=== PATIENT | female | born 1995 | race Caucasian/White ===

== ENCOUNTER 2017-08-31 13:27 | Inpatient (IN) | payer MEDICAID ==
[2017-08-31] MEDS ORDERED: NS 1,000 ML IV ONE ×2 (14:12→15:28)
[2017-08-31] MEDS ORDERED: IBUPROFEN 600 MG TAB PO ONE (15:09)
[2017-08-31] MEDS ORDERED: ACETAMINOPHEN 500 MG TAB PO ONE (15:09)
--- NOTE | 2017-08-31 15:20 | EDPHY ---
HPI/HX/ROS/PE/MDM Narrative: CHIEF COMPLAINT: Fever, facial swelling. HISTORY OF PRESENT ILLNESS: This patient is a 21 year old female complaining of fever and dizziness worsening since Monday and right-sided facial swelling onset this morning. Nine days ago, she had all four wisdom teeth remove. She took pain medication following, and felt well. Monday and Monday, she felt lightheaded and nauseous. Yesterday at work she did not feel well, and took Theraflu in the evening. She woke in the middle of the night talking to herself and having cold sweats and nausea. She took Theraflu again this morning, but developed worsening body aches, headache, and nausea. She noted the facial swelling at this time. She denies any throat pain or swelling or difficulty breathing. She has not vomited or fainted. No chest pain, shortness of breath, palpitations, vomiting, diarrhea, urinary complaints. REVIEW OF SYSTEMS: Aside from elements discussed in the HPI, a comprehensive 10-point review of systems was reviewed and is negative. PAST MEDICAL HISTORY: [place] tooth removal. 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 Lives in [place]. Single. VITAL SIGNS: Reviewed by me GENERAL: Well-developed, well-nourished, resting comfortably in no respiratory distress. HEENT: Significant swelling to right side of face across angle of the jaw, extends submandibularly. Mildly erythematous. Soft, nontender. Eyes: No icterus , no injection. Mouth: moist mucous membranes. Erythematous posterior pharynx and uvula. Erythema around right upper wisdom tooth extraction site. Neck: supple with no adenopathy. LUNGS: Clear to auscultation bilaterally, no wheezes, rhonchi or rales. CARDIAC: Regular tachycardia, no rubs, murmurs or gallops. ABDOMEN: Soft, nontender, nondistended, bowel sounds normal. BACK: No CVA tenderness. EXTREMITIES: No trauma. No edema. Range of motion is normal throughout. NEURO: Alert and oriented, grossly nonfocal. SKIN: Warm and dry, no rash. PSYCHIATRIC: Normal mentation, no agitation. Portions of this note were transcribed by a medical laboratory assistant. I personally performed a history, physical exam, medical decision making, and confirmed accuracy of information the transcribed note. ED Course: 21 year old female presents with fever and right-sided facial swelling. At triage, she is febrile at 39.3 degrees. Exam reveals significant mildly erythematous swelling to the right side of her face across mandibular area extending submandibularly which is soft and nontender. Erythema to posterior pharynx, uvula, and around right upper wisdom tooth extraction site. Plan to administer 600mg PO Ibuprofen and 1000mg PO acetaminophen for fever reduction. IV established. Administered 1L IV NS for symptom relief. Plan for labs including CBC, BMP, sepsis protocol, flu, mono, and strep screening. Plan for CT neck. White count 18,000. Does not meet severe sepsis criteria. [place] negative, strep negative. 17:[address] Dykes, radiologist. CT shows 1cm abscess lateral to lower right tooth, inflammatory changes down to hyoid. Plan to admit. Plan for ENT and medicine consult. 17:33 Spoke with hospitalist service. Dr. Jackson accepts admission. 17:43 ANGELICA Gunn for otolaryngology, at bedside. Consulted. ENT will follow in hospital. Sepsis Evaluation Note: The patient presents to the ED with potential infection identified as facial cellulitis and dental abscess. The patient did have evidence of sepsis with temperature greater than 38 degree Celsius, heart rate greater than 90, and WBC greater than 12,000. No evidence severe sepsis. Normal lactic acid. Patient did not have evidence of end-organ dysfunction. MDM: Differential diagnoses for the patient's symptom complex was considered including but not limited to dental abscess, facial cellulitis, deep space infection, soft tissue abscess, airway compromise, bacteremia, sepsis. - Data Points Imaging Results: Imaging Impressions Neck CT 08/31/17 15:28 Impression: 1. 1.3 x 1.1 x 1.5 cm periodontal abscess lateral to the right molar tooth, which recently has been removed. 2. Subcutaneous cellulitis and soft tissue inflammatory reaction extending down to the level of C4 along the lateral neck. The swelling goes to the submandibular glands, but does not extend medial to the submandibular glands. 3. No other abscesses. 4. Reactive lymphadenopathy. Findings discussed with Radha Santiago MD, at 1730 hours, 08/31/2017. Final report concurs with initial preliminary interpretation. Imaging: Discussed imaging studies w/ call center agent Radiologist Laboratory Results: Laboratory Results 08/31/17 14:00 08/31/17 14:00 08/31/17 08/31/17 08/31/17 16:20 16:00 15:28 WBC RBC Hgb Hct MCV MCH MCHC RDW Plt Count MPV Neut % (Auto) Lymph % (Auto) [place] % (Auto) Eos % (Auto) Baso % (Auto) Nucleat RBC Rel Count Absolute Neuts (auto) Absolute Lymphs (auto) Absolute Monos (auto) Absolute Eos (auto) Absolute Basos (auto) Absolute Nucleated RBC Immature Gran % Immature Gran # PT INR APTT VBG Lactic Acid 0.6 mmol/L L mmol/L (0.7-2.1) Sodium Potassium Chloride Carbon Dioxide Anion Gap BUN Creatinine Estimated GFR Glucose Calcium Total Bilirubin Nasal Influenza A PCR NEGATIVE FOR FLU A (NEGATIVE) Nasal Influenza B PCR NEGATIVE FOR FLU B (NEGATIVE) Monoscreen Group A Strep Screen NEGATIVE (NEGATIVE) 08/31/17 08/31/17 08/31/17 14:00 14:00 14:00 WBC RBC Hgb Hct MCV MCH MCHC RDW Plt Count MPV Neut % (Auto) Lymph % (Auto) [place] % (Auto) Eos % (Auto) Baso % (Auto) Nucleat RBC Rel Count Absolute Neuts (auto) Absolute Lymphs (auto) Absolute Monos (auto) Absolute Eos (auto) Absolute Basos (auto) Absolute Nucleated RBC Immature Gran % Immature Gran # PT 14.0 SEC SEC (12.0-15.0) INR 1.09 (0.83-1.16) APTT 28.3 SEC SEC (23.0-38.0) VBG Lactic Acid Sodium 139 mEq/L mEq/L (134-144) Potassium 3.5 mEq/L mEq/L (3.5-5.2) Chloride 101 mEq/L mEq/L (97-110) Carbon Dioxide 22 mEq/l mEq/l (22-31) Anion Gap 16 mEq/L mEq/L (8-16) BUN 9 mg/dL mg/dL (7-23) Creatinine 0.8 mg/dL mg/dL (0.6-1.0) Estimated GFR > 60 Glucose 102 mg/dL H mg/dL (70-100) Calcium 9.3 mg/dL mg/dL (8.5-10.4) Total Bilirubin 1.3 mg/dL mg/dL (0.1-1.4) Nasal Influenza A PCR Nasal Influenza B PCR Monoscreen NEGATIVE (NEGATIVE) Group A Strep Screen 08/31/17 14:00 WBC 18.70 10^3/uL H 10^3/uL (3.80-9.50) RBC 4.74 10^6/uL 10^6/uL (4.18-5.33) Hgb 14.8 g/dL g/dL (12.6-16.3) Hct 42.9 % % (38.0-47.0) MCV 90.5 fL fL (81.5-99.8) MCH 31.2 pg pg (27.9-34.1) MCHC 34.5 g/dL g/dL (32.4-36.7) RDW 11.9 % % (11.5-15.2) Plt Count 295 10^3/uL 10^3/uL (150-400) MPV 9.7 fL fL (8.7-11.7) Neut % (Auto) 85.6 % H % (39.3-74.2) Lymph % (Auto) 9.0 % L % (15.0-45.0) [place] % (Auto) 4.5 % % (4.5-13.0) Eos % (Auto) 0.2 % L % (0.6-7.6) Baso % (Auto) 0.3 % % (0.3-1.7) Nucleat RBC Rel Count 0.0 % % (0.0-0.2) Absolute Neuts (auto) 16.02 10^3/uL H 10^3/uL (1.70-6.50) Absolute Lymphs (auto) 1.68 10^3/uL 10^3/uL (1.00-3.00) Absolute Monos (auto) 0.85 10^3/uL H 10^3/uL (0.30-0.80) Absolute Eos (auto) 0.03 10^3/uL 10^3/uL (0.03-0.40) Absolute Basos (auto) 0.05 10^3/uL 10^3/uL (0.02-0.10) Absolute Nucleated RBC 0.00 10^3/uL 10^3/uL (0-0.01) Immature Gran % 0.4 % % (0.0-1.1) Immature Gran # 0.07 10^3/uL 10^3/uL (0.00-0.10) PT INR APTT VBG Lactic Acid Sodium Potassium Chloride Carbon Dioxide Anion Gap BUN Creatinine Estimated GFR Glucose Calcium Total Bilirubin Nasal Influenza A PCR Nasal Influenza B PCR Monoscreen Group A Strep Screen Medications Given: Discontinued Medications Acetaminophen (Tylenol) 1,000 mg PO EDNOW ONE Stop: 08/31/17 15:10 Last Admin: 08/31/17 15:15 Dose: 1,000 mg Sodium Chloride (Ns) 1,000 mls @ 0 mls/hr IV ONCE ONE; Wide Open PRN Reason: Protocol Stop: 08/31/17 14:13 Last Admin: 08/31/17 14:23 Dose: 1,000 mls Sodium Chloride (Ns) 1,000 mls @ 0 mls/hr IV ONCE ONE; Wide Open PRN Reason: Protocol Stop: 08/31/17 15:29 Last Admin: 08/31/17 15:48 Dose: 1,000 mls Ertapenem 1 gm/ Sodium (Chloride) 100 mls @ 200 mls/hr IV DAILY DELMI PRN Reason: Protocol Stop: 09/30/17 17:59 Last Admin: 08/31/17 18:20 Dose: 100 mls Clindamycin Phosphate/Dextrose (Cleocin 600 Mg (Premix)) 50 mls @ 100 mls/hr IV EDNOW ONE PRN Reason: Protocol Stop: 08/31/17 18:20 Last Admin: 08/31/17 18:37 Dose: Not Given Ibuprofen (Motrin) 600 mg PO EDNOW ONE Stop: 08/31/17 15:10 Last Admin: 08/31/17 15:14 Dose: 600 mg Ketorolac Tromethamine (Toradol) 15 mg IVP EDNOW ONE Stop: 08/31/17 17:48 Last Admin: 08/31/17 18:05 Dose: Not Given General Time Seen by Provider: 08/31/17 14:45 Initial Vital Signs: Initial Vital Signs Temperature (C) 39.3 C H 08/31/17 13:46 Heart Rate 127 H 08/31/17 13:46 Respiratory Rate 18 08/31/17 13:46 Blood Pressure 124/74 H 08/31/17 13:46 O2 Sat (%) 98 08/31/17 13:46 O2 Delivery Mode Room Air Allergies/Adverse Reactions: No Known Allergies Allergy (Unverified 08/31/17 13:45) Home Medications: Medication Instructions Recorded Control 1 tab PO DAILY 08/31/17 Hydrocodone/Acetaminophen [[place] 1 each PO Q6 PRN 08/31/17 5/325 (*)] Departure - Departure Disposition: [facility] Inpatient Acute Clinical Impression: Dental abscess, Facial cellulitis Condition: Fair Report Scribed for: Radha Santiago Report Scribed by: Vikki Mejias Date of Report: 08/31/17 Time of Report: 16:46
[2017-08-31 16:18] LABS: PLATELET COUNT 295 10^3/uL (150-400)
[2017-08-31 16:23] LABS: INR 1.09 (0.83-1.16)
[2017-08-31] MEDS ORDERED: IOPAMIDOL (ISOVUE-300) 100 ML BTL ONE (16:38)
[2017-08-31] MEDS ORDERED: CLINDAMYCIN 600 MG/DEXTROSE 50 ML IV ONE ×2 (17:31→17:51)
[2017-08-31] MEDS ORDERED: AMPICILLIN/SULBACTAM 3 GM in NS 100 ML IV ONE (17:38)
[2017-08-31] MEDS ORDERED: ONDANSETRON 4 MG/2 ML VIAL IVP PRN (17:44)
[2017-08-31] MEDS ORDERED: ONDANSETRON DISINTEGRATING 4 MG TAB PO PRN (17:44)
[2017-08-31] MEDS ORDERED: KETOROLAC 30 MG/1 ML SDV IVP ONE (17:47)
[2017-08-31] MEDS: ERTAPENEM 1 GM in NS 100 ML IV SCH ×2 (18:05→18:20)
--- NOTE | 2017-08-31 18:20 | PDGENHP ---
History and Physical - Chief Complaint facial pain - History of Present Illness 21 yo female with no significant past medical history presents to ED with facial pain, fevers, chills, and sweats. She had all 4 of her wisdom teeth removed 9 days [employer] [place] in [employer] [place]. She did well until POD #4 when she developed a fever and malaise. She then felt better for a few days, but awoke early this am with cold sweats, fever, and increased pain and swelling of her left cheek. She endorses nausea, no vomiting. She has no mandibular pain. In the ED, a CT scan revealed a periodontal abscess. Blood cultures were drawn. She was given a dose of Ertapenem and is admitted to the hospital for further management. History Information - Allergies/Home Medication List Allergies/Adverse Reactions: No Known Allergies Allergy (Unverified 08/31/17 13:45) Home Medications: Control 1 tab PO DAILY 08/31/17 [Last Taken Unknown] Hydrocodone/Acetaminophen [[place] 5/325 (*)] 1 each PO Q6 PRN 08/31/17 [Last Taken Unknown] I have personally reviewed and updated: family history, social history, surgical history - Surgical History Additional surgical history: wisdom teeth extraction 08/22/2017 - Family History Positive for: non-pertinent - Social History Smoking Status: Never smoked Alcohol Use: None Drug Use: None Additional social history: Single. Lives in [place]. 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 Review of Systems Review of Systems: ROS: 10pt was reviewed & negative except for what was stated in HPI & below Physical Exam Physical Exam: Temp Pulse Resp BP Pulse Ox 37.2 C 96 16 114/71 96 08/31/17 17:55 08/31/17 17:55 08/31/17 17:55 08/31/17 17:55 08/31/17 17:55 Constitutional: no apparent distress Eyes: PERRL Ears, Nose, Mouth, Throat: other (right facial swelling without erythema, + anterior cervical LAD) Cardiovascular: regular rate and rhythym, no murmur, rub, or gallop Respiratory: no respiratory distress, clear to auscultation Gastrointestinal: normoactive bowel sounds, soft, non-tender abdomen Skin: warm, normal color Musculoskeletal: full muscle strength Neurologic: AAOx3 Psychiatric: interacting appropriately Lab Data & Imaging Review 08/31/17 14:00 08/31/17 14:00 WBC 18.70 10^3/uL (3.80-9.50) H 08/31/17 14:00 RBC 4.74 10^6/uL (4.18-5.33) 08/31/17 14:00 Hgb 14.8 g/dL (12.6-16.3) 08/31/17 14:00 Hct 42.9 % (38.0-47.0) 08/31/17 14:00 MCV 90.5 fL (81.5-99.8) 08/31/17 14:00 MCH 31.2 pg (27.9-34.1) 08/31/17 14:00 MCHC 34.5 g/dL (32.4-36.7) 08/31/17 14:00 RDW 11.9 % (11.5-15.2) 08/31/17 14:00 Plt Count 295 10^3/uL (150-400) 08/31/17 14:00 MPV 9.7 fL (8.7-11.7) 08/31/17 14:00 Neut % (Auto) 85.6 % (39.3-74.2) H 08/31/17 14:00 Lymph % (Auto) 9.0 % (15.0-45.0) L 08/31/17 14:00 [place] % (Auto) 4.5 % (4.5-13.0) 08/31/17 14:00 Eos % (Auto) 0.2 % (0.6-7.6) L 08/31/17 14:00 Baso % (Auto) 0.3 % (0.3-1.7) 08/31/17 14:00 Nucleat RBC Rel Count 0.0 % (0.0-0.2) 08/31/17 14:00 Absolute Neuts (auto) 16.02 10^3/uL (1.70-6.50) H 08/31/17 14:00 Absolute Lymphs (auto) 1.68 10^3/uL (1.00-3.00) 08/31/17 14:00 Absolute Monos (auto) 0.85 10^3/uL (0.30-0.80) H 08/31/17 14:00 Absolute Eos (auto) 0.03 10^3/uL (0.03-0.40) 08/31/17 14:00 Absolute Basos (auto) 0.05 10^3/uL (0.02-0.10) 08/31/17 14:00 Absolute Nucleated RBC 0.00 10^3/uL (0-0.01) 08/31/17 14:00 Immature Gran % 0.4 % (0.0-1.1) 08/31/17 14:00 Immature Gran # 0.07 10^3/uL (0.00-0.10) 08/31/17 14:00 PT 14.0 SEC (12.0-15.0) 08/31/17 14:00 INR 1.09 (0.83-1.16) 08/31/17 14:00 APTT 28.3 SEC (23.0-38.0) 08/31/17 14:00 VBG Lactic Acid 0.6 mmol/L (0.7-2.1) L 08/31/17 16:20 Sodium 139 mEq/L (134-144) 08/31/17 14:00 Potassium 3.5 mEq/L (3.5-5.2) 08/31/17 14:00 Chloride 101 mEq/L (97-110) 08/31/17 14:00 Carbon Dioxide 22 mEq/l (22-31) 08/31/17 14:00 Anion Gap 16 mEq/L (8-16) 08/31/17 14:00 BUN 9 mg/dL (7-23) 08/31/17 14:00 Creatinine 0.8 mg/dL (0.6-1.0) 08/31/17 14:00 Estimated GFR > 60 08/31/17 14:00 Glucose 102 mg/dL (70-100) H 08/31/17 14:00 Calcium 9.3 mg/dL (8.5-10.4) 08/31/17 14:00 Total Bilirubin 1.3 mg/dL (0.1-1.4) 08/31/17 14:00 Nasal Influenza A PCR NEGATIVE FOR FLU A (NEGATIVE) 08/31/17 16:00 Nasal Influenza B PCR NEGATIVE FOR FLU B (NEGATIVE) 08/31/17 16:00 Monoscreen NEGATIVE (NEGATIVE) 08/31/17 14:00 Group A Strep Screen NEGATIVE (NEGATIVE) 08/31/17 15:28 Assessment & Plan Assessment: Periodontal abscess s/p wisdom tooth extraction - +SIRS criteria: fever, tachycardia, leukocytosis. No e/o severe sepsis, lactate normal. Discussed case with ENT who recommends Clindamycin. Discussed case with ID, who recommends Unasyn. Pt given Ertapenem in ED. BCx's pending. -Cont atbx, change to Unasyn tomorrow -can dc on oral augmentin when ready -likely needs drainage, discussed with Dr. Shantanu Valdivia, oral surgeon, who prefers to do it in his office and recommends we call there in the am for him to arrange: [phone] -if pt still appears ill tomorrow, consider inpt oral surgery consult Full code Dispo - inpt, suspect will require >48 hrs hospitalization for ongoing management of periodontal abscess and associated sepsis
--- NOTE | 2017-08-31 18:20 | PDGENHP ---
History and Physical - Chief Complaint facial pain - History of Present Illness 21 yo female with no significant past medical history presents to ED with facial pain, fevers, chills, and sweats. 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 She did well until POD #4 when she developed a fever and malaise. She then felt better for a few days, but awoke early this am with cold sweats, fever, and increased pain and swelling of her left cheek. She endorses nausea, no vomiting. She has no mandibular pain. In the ED, a CT scan revealed a periodontal abscess. Blood cultures were drawn. She was given a dose of Ertapenem and is admitted to the hospital for further management. History Information - Allergies/Home Medication List Allergies/Adverse Reactions: No Known Allergies Allergy (Unverified 08/31/17 13:45) Home Medications: Control 1 tab PO DAILY 08/31/17 [Last Taken Unknown] Hydrocodone/Acetaminophen [[place] 5/325 (*)] 1 each PO Q6 PRN 08/31/17 [Last Taken Unknown] I have personally reviewed and updated: family history, social history, surgical history - Surgical History Additional surgical history: wisdom teeth extraction 08/22/2017 - Family History Positive for: non-pertinent - Social History Smoking Status: Never smoked Alcohol Use: None Drug Use: None Additional social history: Single. Lives in [place]. 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 Review of Systems Review of Systems: ROS: 10pt was reviewed & negative except for what was stated in HPI & below Physical Exam Physical Exam: Temp Pulse Resp BP Pulse Ox 37.2 C 96 16 114/71 96 08/31/17 17:55 08/31/17 17:55 08/31/17 17:55 08/31/17 17:55 08/31/17 17:55 Constitutional: no apparent distress Eyes: PERRL Ears, Nose, Mouth, Throat: other (right facial swelling without erythema, + anterior cervical LAD) Cardiovascular: regular rate and rhythym, no murmur, rub, or gallop Respiratory: no respiratory distress, clear to auscultation Gastrointestinal: normoactive bowel sounds, soft, non-tender abdomen Skin: warm, normal color Musculoskeletal: full muscle strength Neurologic: AAOx3 Psychiatric: interacting appropriately Lab Data & Imaging Review 08/31/17 14:00 08/31/17 14:00 WBC 18.70 10^3/uL (3.80-9.50) H 08/31/17 14:00 RBC 4.74 10^6/uL (4.18-5.33) 08/31/17 14:00 Hgb 14.8 g/dL (12.6-16.3) 08/31/17 14:00 Hct 42.9 % (38.0-47.0) 08/31/17 14:00 MCV 90.5 fL (81.5-99.8) 08/31/17 14:00 MCH 31.2 pg (27.9-34.1) 08/31/17 14:00 MCHC 34.5 g/dL (32.4-36.7) 08/31/17 14:00 RDW 11.9 % (11.5-15.2) 08/31/17 14:00 Plt Count 295 10^3/uL (150-400) 08/31/17 14:00 MPV 9.7 fL (8.7-11.7) 08/31/17 14:00 Neut % (Auto) 85.6 % (39.3-74.2) H 08/31/17 14:00 Lymph % (Auto) 9.0 % (15.0-45.0) L 08/31/17 14:00 [place] % (Auto) 4.5 % (4.5-13.0) 08/31/17 14:00 Eos % (Auto) 0.2 % (0.6-7.6) L 08/31/17 14:00 Baso % (Auto) 0.3 % (0.3-1.7) 08/31/17 14:00 Nucleat RBC Rel Count 0.0 % (0.0-0.2) 08/31/17 14:00 Absolute Neuts (auto) 16.02 10^3/uL (1.70-6.50) H 08/31/17 14:00 Absolute Lymphs (auto) 1.68 10^3/uL (1.00-3.00) 08/31/17 14:00 Absolute Monos (auto) 0.85 10^3/uL (0.30-0.80) H 08/31/17 14:00 Absolute Eos (auto) 0.03 10^3/uL (0.03-0.40) 08/31/17 14:00 Absolute Basos (auto) 0.05 10^3/uL (0.02-0.10) 08/31/17 14:00 Absolute Nucleated RBC 0.00 10^3/uL (0-0.01) 08/31/17 14:00 Immature Gran % 0.4 % (0.0-1.1) 08/31/17 14:00 Immature Gran # 0.07 10^3/uL (0.00-0.10) 08/31/17 14:00 PT 14.0 SEC (12.0-15.0) 08/31/17 14:00 INR 1.09 (0.83-1.16) 08/31/17 14:00 APTT 28.3 SEC (23.0-38.0) 08/31/17 14:00 VBG Lactic Acid 0.6 mmol/L (0.7-2.1) L 08/31/17 16:20 Sodium 139 mEq/L (134-144) 08/31/17 14:00 Potassium 3.5 mEq/L (3.5-5.2) 08/31/17 14:00 Chloride 101 mEq/L (97-110) 08/31/17 14:00 Carbon Dioxide 22 mEq/l (22-31) 08/31/17 14:00 Anion Gap 16 mEq/L (8-16) 08/31/17 14:00 BUN 9 mg/dL (7-23) 08/31/17 14:00 Creatinine 0.8 mg/dL (0.6-1.0) 08/31/17 14:00 Estimated GFR > 60 08/31/17 14:00 Glucose 102 mg/dL (70-100) H 08/31/17 14:00 Calcium 9.3 mg/dL (8.5-10.4) 08/31/17 14:00 Total Bilirubin 1.3 mg/dL (0.1-1.4) 08/31/17 14:00 Nasal Influenza A PCR NEGATIVE FOR FLU A (NEGATIVE) 08/31/17 16:00 Nasal Influenza B PCR NEGATIVE FOR FLU B (NEGATIVE) 08/31/17 16:00 Monoscreen NEGATIVE (NEGATIVE) 08/31/17 14:00 Group A Strep Screen NEGATIVE (NEGATIVE) 08/31/17 15:28 Assessment & Plan Assessment: Periodontal abscess s/p wisdom tooth extraction - +SIRS criteria: fever, tachycardia, leukocytosis. No e/o severe sepsis, lactate normal. Discussed case with ENT who recommends Clindamycin. Discussed case with ID, who recommends Unasyn. Pt given Ertapenem in ED. BCx's pending. -Cont atbx, change to Unasyn tomorrow -can dc on oral augmentin when ready -likely needs drainage, discussed with Dr. Shantanu Valdivia, oral surgeon, who prefers to do it in his office and recommends we call there in the am for him to arrange: [phone] -if pt still appears ill tomorrow, consider inpt oral surgery consult Full code Dispo - inpt, suspect will require >48 hrs hospitalization for ongoing management of periodontal abscess and associated sepsis
--- NOTE | 2017-08-31 18:20 | PDGENHP ---
History and Physical - Chief Complaint facial pain - History of Present Illness 21 yo female with no significant past medical history presents to ED with facial pain, fevers, chills, and sweats. 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 She did well until POD #4 when she developed a fever and malaise. She then felt better for a few days, but awoke early this am with cold sweats, fever, and increased pain and swelling of her left cheek. She endorses nausea, no vomiting. She has no mandibular pain. In the ED, a CT scan revealed a periodontal abscess. Blood cultures were drawn. She was given a dose of Ertapenem and is admitted to the hospital for further management. History Information - Allergies/Home Medication List Allergies/Adverse Reactions: No Known Allergies Allergy (Unverified 08/31/17 13:45) Home Medications: Control 1 tab PO DAILY 08/31/17 [Last Taken Unknown] Hydrocodone/Acetaminophen [[place] 5/325 (*)] 1 each PO Q6 PRN 08/31/17 [Last Taken Unknown] I have personally reviewed and updated: family history, social history, surgical history - Surgical History Additional surgical history: wisdom teeth extraction 08/22/2017 - Family History Positive for: non-pertinent - Social History Smoking Status: Never smoked Alcohol Use: None Drug Use: None Additional social history: Single. Lives in [place]. 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 Review of Systems Review of Systems: ROS: 10pt was reviewed & negative except for what was stated in HPI & below Physical Exam Physical Exam: Temp Pulse Resp BP Pulse Ox 37.2 C 96 16 114/71 96 08/31/17 17:55 08/31/17 17:55 08/31/17 17:55 08/31/17 17:55 08/31/17 17:55 Constitutional: no apparent distress Eyes: PERRL Ears, Nose, Mouth, Throat: other (right facial swelling without erythema, + anterior cervical LAD) Cardiovascular: regular rate and rhythym, no murmur, rub, or gallop Respiratory: no respiratory distress, clear to auscultation Gastrointestinal: normoactive bowel sounds, soft, non-tender abdomen Skin: warm, normal color Musculoskeletal: full muscle strength Neurologic: AAOx3 Psychiatric: interacting appropriately Lab Data & Imaging Review 08/31/17 14:00 08/31/17 14:00 WBC 18.70 10^3/uL (3.80-9.50) H 08/31/17 14:00 RBC 4.74 10^6/uL (4.18-5.33) 08/31/17 14:00 Hgb 14.8 g/dL (12.6-16.3) 08/31/17 14:00 Hct 42.9 % (38.0-47.0) 08/31/17 14:00 MCV 90.5 fL (81.5-99.8) 08/31/17 14:00 MCH 31.2 pg (27.9-34.1) 08/31/17 14:00 MCHC 34.5 g/dL (32.4-36.7) 08/31/17 14:00 RDW 11.9 % (11.5-15.2) 08/31/17 14:00 Plt Count 295 10^3/uL (150-400) 08/31/17 14:00 MPV 9.7 fL (8.7-11.7) 08/31/17 14:00 Neut % (Auto) 85.6 % (39.3-74.2) H 08/31/17 14:00 Lymph % (Auto) 9.0 % (15.0-45.0) L 08/31/17 14:00 Hamilton % (Auto) 4.5 % (4.5-13.0) 08/31/17 14:00 Eos % (Auto) 0.2 % (0.6-7.6) L 08/31/17 14:00 Baso % (Auto) 0.3 % (0.3-1.7) 08/31/17 14:00 Nucleat RBC Rel Count 0.0 % (0.0-0.2) 08/31/17 14:00 Absolute Neuts (auto) 16.02 10^3/uL (1.70-6.50) H 08/31/17 14:00 Absolute Lymphs (auto) 1.68 10^3/uL (1.00-3.00) 08/31/17 14:00 Absolute Monos (auto) 0.85 10^3/uL (0.30-0.80) H 08/31/17 14:00 Absolute Eos (auto) 0.03 10^3/uL (0.03-0.40) 08/31/17 14:00 Absolute Basos (auto) 0.05 10^3/uL (0.02-0.10) 08/31/17 14:00 Absolute Nucleated RBC 0.00 10^3/uL (0-0.01) 08/31/17 14:00 Immature Gran % 0.4 % (0.0-1.1) 08/31/17 14:00 Immature Gran # 0.07 10^3/uL (0.00-0.10) 08/31/17 14:00 PT 14.0 SEC (12.0-15.0) 08/31/17 14:00 INR 1.09 (0.83-1.16) 08/31/17 14:00 APTT 28.3 SEC (23.0-38.0) 08/31/17 14:00 VBG Lactic Acid 0.6 mmol/L (0.7-2.1) L 08/31/17 16:20 Sodium 139 mEq/L (134-144) 08/31/17 14:00 Potassium 3.5 mEq/L (3.5-5.2) 08/31/17 14:00 Chloride 101 mEq/L (97-110) 08/31/17 14:00 Carbon Dioxide 22 mEq/l (22-31) 08/31/17 14:00 Anion Gap 16 mEq/L (8-16) 08/31/17 14:00 BUN 9 mg/dL (7-23) 08/31/17 14:00 Creatinine 0.8 mg/dL (0.6-1.0) 08/31/17 14:00 Estimated GFR > 60 08/31/17 14:00 Glucose 102 mg/dL (70-100) H 08/31/17 14:00 Calcium 9.3 mg/dL (8.5-10.4) 08/31/17 14:00 Total Bilirubin 1.3 mg/dL (0.1-1.4) 08/31/17 14:00 Nasal Influenza A PCR NEGATIVE FOR FLU A (NEGATIVE) 08/31/17 16:00 Nasal Influenza B PCR NEGATIVE FOR FLU B (NEGATIVE) 08/31/17 16:00 Monoscreen NEGATIVE (NEGATIVE) 08/31/17 14:00 Group A Strep Screen NEGATIVE (NEGATIVE) 08/31/17 15:28 Assessment & Plan Assessment: Periodontal abscess s/p wisdom tooth extraction - +SIRS criteria: fever, tachycardia, leukocytosis. No e/o severe sepsis, lactate normal. Discussed case with ENT who recommends Clindamycin. Discussed case with ID, who recommends Unasyn. Pt given Ertapenem in ED. BCx's pending. -Cont atbx, change to Unasyn tomorrow -can dc on oral augmentin when ready -likely needs drainage, discussed with Dr. Shantanu Valdivia, oral surgeon, who prefers to do it in his office and recommends we call there in the am for him to arrange: [phone] -if pt still appears ill tomorrow, consider inpt oral surgery consult Full code Dispo - inpt, suspect will require >48 hrs hospitalization for ongoing management of periodontal abscess and associated sepsis
--- NOTE | 2017-08-31 20:56 | GCON ---
[f rep st] CONSULTATION HISTORY OF PRESENT ILLNESS: The patient is a 21-year-old female, who presents to the emergency room today for evaluation of right facial swelling. The patient states that she had her wisdom teeth juan nisa on August 22. She was recovering uneventfully until today when her right jaw became ve ry swollen, and she developed a fever. A CT scan was performed, and that revealed a 1 cm abscess. PAST MEDICAL HISTORY: Negative. ALLERGIES: Negative. SOCIAL HISTORY: Noncontributory. PHYSICAL EXAMINATION: GENERAL: The patient is alert and orientated x3. HEENT: Head atraumatic, no rmocephalic. Ears, ECs are clear. TMs are healthy and intact. Nose clear. Oral cavity and pharynx are clear. NECK: She has significant swelling over her right mandible. It is tender to palpation, semi soft. Review of the CT scan reveals a 1 cm abscess lateral to her tooth. ASSESSMENT: The patient with a right dental abscess after wisdom tooth extraction 1 week ago. PLAN: The patient will be admitted overnight on IV clindamycin 600 mg 4 times daily for good oral co verage. I will round on her in the morning to make sure she is improving. She may need to return to her surgeon for followup of the abscess. Thank you for allowing us to consult in her care. /[id number]/MODL
[2017-08-31] MEDS ORDERED: HYDROCODONE/APAP 5/325 TAB PO PRN (22:40)
[2017-09-01 05:27] LABS: PLATELET COUNT 237 10^3/uL (150-400)
[2017-09-01] MEDS: BIRTH CONTROL PO SCH (08:11)
[2017-09-01] MEDS: ACETAMINOPHEN 325 MG TAB PO PRN ×2 (08:15→14:00)
--- NOTE | 2017-09-01 08:24 | HOSPPROG ---
Hospitalist Progress Note Assessment/Plan: Patient is a 21-year-old female who presented the emergency room with facial pain, fever chills and sweats. Recently, she had all 4 wisdom teeth removed approximately 9 days ago. She did well until postop day number 4. When she developed a fever and malaise. In the emergency room a CT scan was performed which revealed a periodontal abscess. Today is my 1st encounter with the patient. Chart reviewed. * periodontal abscess status post wisdom tooth extraction On Unasyn Given a dose of ertapenem in the ER Continues to be tachycardic and afebrile this morning with increased facial pain Do not believe she is ready to go to an outpatient office and will discuss with ENT * sirs Has some ongoing tachycardia, the fever and leukocytosis Lactate is stable *Plan: spoke with Dr Valdivia who feels it'd be better to do drainage in his office / I am too concerned she is too sick to discharge and go there/Have asked Dr Kaur to get involved in her care. Subjective: Loreto is having increase pain to right side of her face. Objective: Vital Signs Temp Pulse Resp BP Pulse Ox 38.0 C 95 16 116/78 16 L 09/01/17 08:00 09/01/17 08:00 09/01/17 08:00 09/01/17 08:00 09/01/17 08:00 Laboratory Results 09/01/17 05:02 08/31/17 09/01/17 09/02/17 05:59 05:59 05:59 Intake Total 2500 Balance 2500 PT 14.0 SEC (12.0-15.0) 08/31/17 14:00 INR 1.09 (0.83-1.16) 08/31/17 14:00 - Physical Exam Constitutional: uncomfortable Eyes: PERRL Ears, Nose, Mouth, Throat: hearing normal Cardiovascular: regular rate and rhythym, tachycardia Respiratory: no respiratory distress Gastrointestinal: normoactive bowel sounds Skin: warm, other (swelling/redness/erythema on right side of face/jaw area/ no trismus) Musculoskeletal: full muscle strength Neurologic: AAOx3 Psychiatric: interacting appropriately ICD10 Worksheet Patient Problems: Problems Problem Status Onset Dental abscess Acute Facial cellulitis Acute
[2017-09-01] MEDS ORDERED: KETOROLAC 15 MG/1 ML SDV IVP ONE (09:16)
--- NOTE | 2017-09-01 09:40 | PDMN ---
Medical Necessity Medical necessity: est los>2mn for periodontal abscess with SIRS/ sepsis s/p wisdom teeth extractions; for IV abx, oral surgery consult with likely need for drainage; per order and H&P 08/31/17
--- NOTE | 2017-09-01 10:43 | GCON ---
[f rep st] CONSULTATION INFECTIOUS DISEASE CONSULT DATE OF CONSULTATION: 09/01/2017 REFERRING PHYSICIAN: Flora Anand NP REASON FOR CONSULT: To assist in the management of this 21-year-old female with an odontogenic infection. HISTORY OF PRESENT ILLNESS: The patient is a very pleasant 21-year-old female, whose previous medical history is unremarkable. The patient states that she underwent extraction of all 4 wisdom teeth, approximately 10 days ago at [facility]. She does not remember the name of her oral surgeon. She states that she did not receive any bhavya or postoperative antibiotics, and there were no complications. Approximately 4 days after the surgery, she began to feel unwell with a fever, and subjective chills. 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 She denies any significant pain in her mouth or swelling, until yesterday, when she states that her face "blew up" on the right side. The patient states that she developed significant swelling and erythema, and pain on her right side of her face, and inside her mouth, in the posterior lower socket, where one of her wisdom teeth was removed. She presented to [facility] yesterday afternoon, where she was febrile to 39.5. A CT scan of the neck revealed significant facial cellulitis on the right, with a 1.3 x 1.1 x 1.5 cm periodontal abscess noted lateral to the right molar tooth socket. She was also found to have subcutaneous cellulitis and soft tissue inflammatory reaction. I am now asked to assist in her management. Also of note, the patient was initially given ertapenem in the emergency department, she is now on Unasyn 1.5 g IV q.6 hours, that has not yet been started. Speaking with the patient today, she continues to have a significant amount of discomfort in the area by the abscess. She has had shaking chills. She denies headache per se. She did eat breakfast this morning. No nausea or vomiting. No significant neck discomfort. No dysphonia, diarrhea or other. Aside from what is listed above, 10 systems were reviewed and all are negative. PREVIOUS MEDICAL HISTORY: As outlined above. MEDICATIONS: Prior to admission included Theraflu and oral contraceptives. ALLERGIES: No known drug allergies. 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 No tobacco, alcohol, or any illicit substances. No recent travel within or outside the [place]. No history of MRSA. Family history: Unremarkable PHYSICAL EXAM: VITAL SIGNS: T-current is 38, T-max is 39.5, heart rate is 95, blood pressure 116/78, 95% on room air. GENERAL: Uncomfortable appearing, but not toxic, lying in bed. HEENT: Atraumatic, normocephalic. Pupils equal, round, reactive to light. Extraocular movements are intact. No conjunctival injection, icterus or petechiae. Her left nostril is pierced. The patient's oropharynx is notable for no obvious thrush. Her posterior oropharynx looks fine. The patient does have extensive facial swelling on the right side with pinkish erythema. There is tenderness around the socket on the right lower area where one of her wisdom teeth was removed. I cannot express any purulence per se, but the area is quite tender. She is able to open and close her mouth without problems. No trismus. NECK: Supple. No anterior cervical lymphadenopathy. CARDIOVASCULAR: Tachycardic, S1, S2. A very faint systolic ejection murmur heard at the right and left lower sternal border. LUNGS: Clear to auscultation bilaterally, with no rales, rhonchi, or wheeze. No increased respiratory effort. ABDOMEN: Soft. No organomegaly or tenderness to palpation. Her navel is pierced. EXTREMITIES: No clubbing, cyanosis, or edema. SKIN: Warm and dry. The patient has multiple tattoos. There are some well-healed scars on her left anterior forearm, consistent with prior cutting behavior. No other lesions noted. NEUROLOGIC: She is alert and oriented x3. Moving all 4 extremities. Cranial nerves 2-12 intact to exam. No sensory deficits or motor deficits. LABORATORY DATA: Microbiologic data: Blood cultures x2 are pending. White blood cell count of 13.9, down from 18, hematocrit 37, platelet count of 237. BUN and creatinine 9/0.8. Flu swab negative. [place] negative. Strep screen negative. Radiographic data as outlined above. IMPRESSION: 21-year-old female status post wisdom teeth extraction approximately 10 days ago , who now presents with a subperiosteal dental abscess with concomitant facial cellulitis. This infection is likely polymicrobial in nature secondary to oropharyngeal vincent. PLAN: 1. Continue Unasyn, but increase dose to 3 g IV q.6 hours. 2. I was able to discuss the case with of oral surgery, who graciously agreed to see the patient later this afternoon. She may go to the operating room tomorrow morning. 3. I did inform patient that her oral contraceptives will be compromised in the setting of antibiotics moving forward and that condom use is necessary in this setting and for at least a month afterward. Thank you very much for consulting infectious diseases. We will continue to follow this patient with you. /[id number]/MODL MTDD
--- NOTE | 2017-09-01 14:25 | SOAPPROG ---
SOASIF Progress Note Assessment/Plan: Assept with dental casa fte wisdom tooth extraction. She is on Unasyn but it was not started until now. Pt notes swelling is less, still alot of pain. Spiked a fever this afternoon. O:- Jaw- swelling si softer and decreased slightly from yesterday. 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 oral cavity is clear. Plan: Pt with infection after wisdom tooth extraction. oral surgery was consulted. They are coming tomorrow. I spoke with ID and we will be signing off. 09/01/17 14:21 Objective: Vital Signs Temp Pulse Resp BP Pulse Ox 38.8 C H 90 16 110/73 95 09/01/17 14:02 09/01/17 10:53 09/01/17 10:53 09/01/17 10:53 09/01/17 10:53 Laboratory Results 09/01/17 05:02 08/31/17 09/01/17 09/02/17 05:59 05:59 05:59 Intake Total 2500 Balance 2500 PT 14.0 SEC (12.0-15.0) 08/31/17 14:00 INR 1.09 (0.83-1.16) 08/31/17 14:00 - Pending Discharge Pending Discharge Within 48 Hours: Yes Pending Discharge Date: 09/03/17 Pending Discharge Time: 11:00 ICD10 Worksheet Patient Problems: Problems Problem Status Onset Dental abscess Acute Facial cellulitis Acute
--- NOTE | 2017-09-01 14:25 | SOAPPROG ---
SOASIF Progress Note Assessment/Plan: Assept with dental casa fte wisdom tooth extraction. She is on Unasyn but it was not started until now. Pt notes swelling is less, still alot of pain. Spiked a fever this afternoon. O:- Jaw- swelling si softer and decreased slightly from yesterday. bobbin winder tender. oral cavity is clear. Plan: Pt with infection after wisdom tooth extraction. oral surgery was consulted. They are coming tomorrow. I spoke with ID and we will be signing off. 09/01/17 14:21 Objective: Vital Signs Temp Pulse Resp BP Pulse Ox 38.8 C H 90 16 110/73 95 09/01/17 14:02 09/01/17 10:53 09/01/17 10:53 09/01/17 10:53 09/01/17 10:53 Laboratory Results 09/01/17 05:02 08/31/17 09/01/17 09/02/17 05:59 05:59 05:59 Intake Total 2500 Balance 2500 PT 14.0 SEC (12.0-15.0) 08/31/17 14:00 INR 1.09 (0.83-1.16) 08/31/17 14:00 - Pending Discharge Pending Discharge Within 48 Hours: Yes Pending Discharge Date: 09/03/17 Pending Discharge Time: 11:00 ICD10 Worksheet Patient Problems: Problems Problem Status Onset Dental abscess Acute Facial cellulitis Acute
--- NOTE | 2017-09-01 14:25 | SOAPPROG ---
SOASIF Progress Note Assessment/Plan: Assept with dental casa fte wisdom tooth extraction. She is on Unasyn but it was not started until now. Pt notes swelling is less, still alot of pain. Spiked a fever this afternoon. O:- Jaw- swelling si softer and decreased slightly from yesterday. flotation tender helper. oral cavity is clear. Plan: Pt with infection after wisdom tooth extraction. oral surgery was consulted. They are coming tomorrow. I spoke with ID and we will be signing off. 09/01/17 14:21 Objective: Vital Signs Temp Pulse Resp BP Pulse Ox 38.8 C H 90 16 110/73 95 09/01/17 14:02 09/01/17 10:53 09/01/17 10:53 09/01/17 10:53 09/01/17 10:53 Laboratory Results 09/01/17 05:02 08/31/17 09/01/17 09/02/17 05:59 05:59 05:59 Intake Total 2500 Balance 2500 PT 14.0 SEC (12.0-15.0) 08/31/17 14:00 INR 1.09 (0.83-1.16) 08/31/17 14:00 - Pending Discharge Pending Discharge Within 48 Hours: Yes Pending Discharge Date: 09/03/17 Pending Discharge Time: 11:00 ICD10 Worksheet Patient Problems: Problems Problem Status Onset Dental abscess Acute Facial cellulitis Acute
--- NOTE | 2017-09-01 14:26 | ASMTCMCOM ---
CM Note CM Note Notes: Pt. is a 21-year-old woman admitted with a periodontal abscess. Hx. recent wisdom teeth extraction. Pt. 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 Pt. currently on IV antibiotics. CM to follow in case Pt needs outpatient IVs. Current plan: Likely independent, however monitor for any outpatient IV antibiotic needs. Date Signed: 09/01/2017 02:26 PM Electronically Signed By:Rosa Guerra LCSW
--- NOTE | 2017-09-01 14:26 | ASMTCMCOM ---
CM Note CM Note Notes: Pt. is a 21-year-old woman admitted with a periodontal abscess. Hx. recent wisdom teeth extraction. Pt. 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 Pt. currently on IV antibiotics. CM to follow in case Pt needs outpatient IVs. Current plan: Likely independent, however monitor for any outpatient IV antibiotic needs. Date Signed: 09/01/2017 02:26 PM Electronically Signed By:Rosa Guerra LCSW
--- NOTE | 2017-09-01 14:26 | ASMTCMCOM ---
CM Note CM Note Notes: Pt. is a 21-year-old woman admitted with a periodontal abscess. Hx. recent wisdom teeth extraction. Pt. 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 Pt. currently on IV antibiotics. CM to follow in case Pt needs outpatient IVs. Current plan: Likely independent, however monitor for any outpatient IV antibiotic needs. Date Signed: 09/01/2017 02:26 PM Electronically Signed By:Rosa Guerra LCSW
[2017-09-01] MEDS: AMPICILLIN/SULBACTAM 3 GM in NS 100 ML IV SCH ×2 (14:36→21:33)
[2017-09-01] MEDS ORDERED: AMPICILLIN/SULBACTAM 1.5 GM in NS 50 ML IV SCH (15:00)
--- NOTE | 2017-09-01 16:46 | ASMTCMCOM ---
CM Note CM Note Notes: Later today bedside RN came to [place] concerned that apparently oral surgeon who plans to do procedure tomorrow does not take Medicaid and will bill Pt. for her services. Pt. is a young woman just starting out in life and receiving a substantial medical bill should be the last resort. Pt. is OK with transferring hospitals if needed. Pinor called hospitalist who plans to contact ID MD to discuss alternative plans for Pt. Updated Pt. in room. Pt. very grateful for advocacy and experiencing a lot of distress regarding potential medical bill. SWer also notified Pt. that while her current hospital stay (minus oral surgeon at this time) will be covered by Medicaid, she should change her Medicaid to a front range plan through [facility]. Pt. still has a [place]-based Medicaid that needs to be changed. Pt. understood and will work on changing her Medicaid. Current plan: CM to follow in case Pt. will need IV antibiotics at d/c. Date Signed: 09/01/2017 04:45 PM Electronically Signed By:Rosa Guerra LCSW
--- NOTE | 2017-09-01 18:55 | GCON ---
[f rep st] ORAL & MAXILLOFACIAL SURGERY CONSULTATION CHIEF COMPLAINT: Facial pain and swelling. HISTORY OF PRESENT ILLNESS: 21-year-old female, who presented to the ED with facial pain, fevers, chills and progressive swelling. She had wisdom teeth removed by an oral surgery practice in [place] 9 days prior to admission and did fine postoperatively until day 4, where she developed fever and swelling. It has been progressive over the last few days. She has attempted to contact the oral surgeon in [place] without definitive success. In the ED a CT scan revealed a subperiosteal abscess associated on the right mandibular side. ID was consulted, patient is currently on Unasyn. OMFS for surgical intervention. PAST MEDICAL HISTORY: Denies. MEDICATIONS: control. ALLERGIES: No known drug allergies. SURGICAL HISTORY: Dental extractions. 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 REVIEW OF SYSTEMS: 10-point review of systems significant for the above mentioned findings. EXAMINATION: VITAL SIGNS: Blood pressure 113/66, heart rate 89, respiratory rate 16, O2 sat 95, temperature 37.7. No acute distress. Resting comfortably in bed. Right mid and lower facial edema, induration and erythema, soft and fluctuant to palpation, no neck limitation on mobility, CN II-XII grossly intact , KALE is greater than 30 mm, dentition grossly intact, right mandibular vestibular edema and gingival bogginess, no purulence obtained on palpation, uvula midline, no floor of mouth edema, full protrusion and mobility of tongue. IMAGING: CT scan reviewed. ASSESSMENT/PLAN: Right mandibular subperiosteal infection s/p extraction of # 32 by outside OMFS. Recommend I&D under [facility] tomorrow, scheduled for 8 am. NPO after MN MIVF abx per ID will add periogard bid /[id number]/MODL MTDD
--- NOTE | 2017-09-01 18:55 | GCON ---
[f rep st] ORAL & MAXILLOFACIAL SURGERY CONSULTATION CHIEF COMPLAINT: Facial pain and swelling. HISTORY OF PRESENT ILLNESS: 21-year-old female, who presented to the ED with facial pain, fevers, chills and progressive swelling. She had wisdom teeth removed by an oral surgery practice in [place] 9 days prior to admission and did fine postoperatively until day 4, where she developed fever and swelling. It has been progressive over the last few days. She has attempted to contact the oral surgeon in [place] without definitive success. In the ED a CT scan revealed a subperiosteal abscess associated on the right mandibular side. ID was consulted, patient is currently on Unasyn. OMFS for surgical intervention. PAST MEDICAL HISTORY: Denies. MEDICATIONS: control. ALLERGIES: No known drug allergies. SURGICAL HISTORY: Dental extractions. 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 REVIEW OF SYSTEMS: 10-point review of systems significant for the above mentioned findings. EXAMINATION: VITAL SIGNS: Blood pressure 113/66, heart rate 89, respiratory rate 16, O2 sat 95, temperature 37.7. No acute distress. Resting comfortably in bed. Right mid and lower facial edema, induration and erythema, soft and fluctuant to palpation, no neck limitation on mobility, CN II-XII grossly intact , KALE is greater than 30 mm, dentition grossly intact, right mandibular vestibular edema and gingival bogginess, no purulence obtained on palpation, uvula midline, no floor of mouth edema, full protrusion and mobility of tongue. IMAGING: CT scan reviewed. ASSESSMENT/PLAN: Right mandibular subperiosteal infection s/p extraction of # 32 by outside OMFS. Recommend I&D under [place] tomorrow, scheduled for 8 am. NPO after MN MIVF abx per ID will add periogard bid /[id number]/MODL MTDD
[2017-09-01] MEDS ORDERED: MELATONIN 3 MG TAB ONE (21:31)
[2017-09-01] MEDS: IBUPROFEN 200 MG TAB PO PRN (21:34)
[2017-09-01] MEDS: MELATONIN 3 MG TAB PO SCH (21:37)
[2017-09-02] MEDS: NS 1,000 ML IV SCH (03:36)
[2017-09-02] MEDS: AMPICILLIN/SULBACTAM 3 GM in NS 100 ML IV SCH ×4 (03:36→20:17)
[2017-09-02 04:47] LABS: PLATELET COUNT 231 10^3/uL (150-400)
[2017-09-02] MEDS ORDERED: BUPIVACAINE 0.5% 30 ML SDV ONE (07:19)
[2017-09-02] MEDS ORDERED: CHLORHEXIDINE GLUCONATE 15 ML UDL ONE (07:20)
--- NOTE | 2017-09-02 07:57 | PCMIDPN ---
Assessment/Plan: 1. Subperiosteal abscess after wisdom tooth removal: Patient to go to the operating room this morning. She is willing to proceed with surgery, as she understands that it is important for her overall health to have this drained. Dr. Lieberman's assistance is greatly appreciated. Patient is very concerned about finances. On Monday, will have social work/someone from the financial department speak to the patient. Continue Unasyn as is. Facial swelling much improved. Subjective: Patient very concerned about finances. Flora Anand and I went in to have a conversation with the patient, expressing the importance of having this drained expeditiously. Patient overall feels better. Did have some shaking chills associated with her fever last evening. Objective: Vital Signs Unasyn 3 g IV q.6 hours day 1 T-max 38.8degrees Temp Pulse Resp BP Pulse Ox 36.8 C 70 14 115/79 96 09/02/17 07:41 09/02/17 07:41 09/02/17 07:41 09/02/17 07:41 09/02/17 07:41 Laboratory Results 09/02/17 04:15 09/02/17 04:15 09/01/17 09/02/17 09/03/17 05:59 05:59 04:59 Intake Total 2500 Balance 2500 Blood cultures negative - Physical Exam General Appearance: other (Right-sided facial swelling much better. No overlying cellulitis, per se.) ICD10 Worksheet Patient Problems: Problems Problem Status Onset Dental abscess Acute Facial cellulitis Acute
[2017-09-02] MEDS ORDERED: MIDAZOLAM 2 MG/2 ML VIAL IVP ONE (08:09)
--- NOTE | 2017-09-02 08:09 | PDANEPAE ---
ANE History of Present Illness I and D tooth, extraoral drain placement ANE Past Medical History - Cardiovascular History Hx Hypertension: No - Pulmonary History Hx COPD: No Hx Oxygen in Use at Home: No Hx Sleep Apnea: No Sleep Apnea Screening Result - Last Documented: Negative - Endocrine History Hx Diabetes: No ANE Review of Systems Review of systems is: negative Review of Systems: - Exercise capacity Exercise capacity: >=4 METS ANE Patient History - Allergies Allergies/Adverse Reactions: No Known Allergies Allergy (Unverified 08/31/17 13:45) - Home Medications Home medications: home medication list seen and reviewed Home Medications: Control 1 tab PO DAILY 08/31/17 [Last Taken Unknown] Hydrocodone/Acetaminophen [[place] 5/325 (*)] 1 each PO Q6 PRN 08/31/17 [Last Taken Unknown] - NPO status NPO Status: no food or drink >8 hours NPO Since - Liquids (Date): 09/01/17 - Anes Hx Anes Hx: no prior problems - Smoking Hx Smoking Status: Never smoked - Alcohol Use Alcohol Use: None - Family Anes Hx Family Anes Hx: none ANE Labs/Vital Signs - Labs Result Diagrams: 09/02/17 04:15 09/02/17 04:15 - Vital Signs Blood Pressure: 115/79 Heart Rate: 70 Respiratory Rate: 14 O2 Sat (%): 96 Height: 149.86 cm Weight: 49.895 kg ANE Physical Exam - Airway Neck exam: FROM Mallampati Score: Class 1 Mouth exam: normal dental/mouth exam - Pulmonary Pulmonary: no respiratory distress - Cardiovascular Cardiovascular: regular rate and rhythym - ASA Status ASA Status: I ANE Anesthesia Plan Total IV Anesthesia: Yes
[2017-09-02] MEDS ORDERED: MIDAZOLAM 2 MG/2 ML VIAL ONE (08:18)
[2017-09-02] MEDS ORDERED: LIDOCAINE 2% 100 MG/5 ML SYR ONE (08:18)
[2017-09-02] MEDS ORDERED: PROPOFOL/EMULSION 500 MG/50 ML BOTTLE IV ONE (08:18)
[2017-09-02] MEDS ORDERED: LIDOCAINE 1% 300 MG/30 ML SDV ONE (08:21)
[2017-09-02] MEDS ORDERED: MEPERIDINE 25 MG/ML SYR IVP PRN (08:55)
[2017-09-02] MEDS ORDERED: HYDROmorphONE/DILAUDID 1 MG/ML INJ IVP PRN (08:55)
[2017-09-02] MEDS ORDERED: NALOXONE HCL 0.4 MG/ML INJ IVP PRN (08:55)
[2017-09-02] MEDS ORDERED: HYDROCODONE/APAP 5/325 TAB PO PRN (08:55)
[2017-09-02] MEDS ORDERED: PROMETHAZINE HCL 25 MG/ML INJ IVP PRN (08:55)
[2017-09-02] MEDS ORDERED: fentaNYL 100 MCG/2 ML INJ IVP PRN (08:55)
[2017-09-02] MEDS ORDERED: DEXAMETHASONE 4 MG/ML VIAL IVP PRN (08:55)
[2017-09-02] MEDS ORDERED: OXYCODONE/APAP 5/325 TAB PO PRN (08:55)
--- NOTE | 2017-09-02 08:55 | POSTANESTH ---
Post Anesthetic Evaluation Cardiovascular Status: Normal, Stable, Similar to Pre-Op Cond Respiratory Status: Normal, Stable, Similar to Pre-op Cond. Level of Consciousness/Mental Status: Can Participate in Eval, Moderately Sleepy Pain Control: Adequate, Prn Tx Ordered Nausea/Vomiting Control: Adequate, Prn Tx Ordered Complications Possibly Related to Anesthesia: None Noted
--- NOTE | 2017-09-02 09:33 | POSTOPPROG ---
Post Op Note Date of Operation: 09/02/17 Surgeon: Sari Lieberman Engineering Inspection Assistant: none Anesthesiologist: Jah Pereira Anesthesia: IV Sedation Pre-op Diagnosis: R mandibular subperiosteal abscess Post-op Diagnosis: same Indication: infection Procedure: I&D of R mandibular subperiosteal abscess, drain x 1 Findings: purulent drainage surrounding #32 site Inf/Abcess present in the surg proc area at time of surgery?: Yes Depth: Deep Incisional (Fascial) EBL: Minimal Total fluids administered: see anesthesia record Complications: none Drains: Ana María (ana maría x 1 intraoral right mandibular vestibule)
--- NOTE | 2017-09-02 09:46 | HOSPPROG ---
Hospitalist Progress Note Assessment/Plan: Patient is a 21-year-old female who presented the emergency room with facial pain, fever chills and sweats. Recently, she had all 4 wisdom teeth removed approximately 9 days ago. She did well until postop day number 4. When she developed a fever and malaise. In the emergency room a CT scan was performed which revealed a periodontal abscess. * right mandibular subperiosteal abscess status post wisdom tooth extraction appreciate Dr Lieberman On Unasyn * sirs much improved/ fever last night Lactate is stable *Plan: continue IV antibiotics/ evaluated the patient today prior to surgery with Dr Ellis. Subjective: Loreto is feeling much better today/ agreeable to go to OR. Objective: Vital Signs Temp Pulse Resp BP Pulse Ox 36.9 C 102 H 24 H 132/77 H 100 09/02/17 09:10 09/02/17 09:10 09/02/17 09:10 09/02/17 09:10 09/02/17 09:10 Laboratory Results 09/02/17 04:15 09/02/17 04:15 09/01/17 09/02/17 09/03/17 05:59 05:59 04:59 Intake Total 2500 Output Total 10 Balance 2500 -10 PT 14.0 SEC (12.0-15.0) 08/31/17 14:00 INR 1.09 (0.83-1.16) 08/31/17 14:00 - Physical Exam Constitutional: no apparent distress, appears nourished, not in pain Eyes: PERRL Ears, Nose, Mouth, Throat: hearing normal Respiratory: no respiratory distress Gastrointestinal: normoactive bowel sounds Skin: other (right jaw area with much less redness and swelling) Musculoskeletal: full muscle strength Neurologic: AAOx3 Psychiatric: interacting appropriately ICD10 Worksheet Patient Problems: Problems Problem Status Onset Dental abscess Acute Facial cellulitis Acute
--- NOTE | 2017-09-02 09:52 | GOP ---
[f rep st] ORAL & MAXILLOFACIAL SURGERY OPERATIVE REPORT DATE OF OPERATION: 09/02/17 SURGEON: Samina Lieberman DDS, MD PRIMARY QUARTZ MINER: none ANESTHESIA: IV GA. PREOPERATIVE DIAGNOSIS: Right mandibular subperiosteal abscess. POSTOPERATIVE DIAGNOSIS: Right mandibular subperiosteal abscess. PROCEDURE PERFORMED: Exploration, I&D of right mandibular subperiosteal abscess , placement of drain. ESTIMATED BLOOD LOSS: minimal FINDINGS: purulent drainage. DRAINS: [place] x 1 intraorally. CULTURES: 2 aerobic/anaerobic cultures. URINE OUTPUT: None recorded. DISPOSITION: Floor. INDICATIONS: The patient is a 21-year-old female who is approximately 10 days status post extraction of her wisdom teeth by an outside oral surgeon. She developed progressive pain and swelling of her right face 4 days postoperatively. She has been admitted for IV antibiotics. CT imaging demonstrates a fluid collection of the right mandibular subperiosteal region, and OMFS was consulted for surgical intervention. Risks, benefits, and complications of the procedure were explained to the patient, all questions were addressed, and the consent form was signed. DESCRIPTION OF PROCEDURE: The patient was correctly identified in the preoperative holding area and transported to [facility]. She was transferred to her bed in the supine position where all ASA monitors were attached. She was induced under anesthesia utilizing an intravenous route. She was prepped and draped in the usual sterile fashion. A time-out was performed where all members of the team were in agreement with the procedure. A bite block was placed, and 6 cc of 0.5% Marcaine with 1:200,000 epinephrine was given to the right inferior alveolar, lingual, and buccal nerves. A throat pack was placed. The oral cavity was brushed with Peridex. A crestal incision #29 - 31 with a posterior hockey-stick extension was developed and a full-thickness mucoperiosteal flap was created. ~ 3 cc's of purulent drainage was obtained associated with the #32 edentulous site. Two aerobic/anaerobic cultures were taken at this time. The extraction socket was curettaged of all debris, and the right mandible was explored for post-surgical debris. Thorough irrigation with normal saline was performed and a half-inch Pati was trimmed and secured into the right mandibular subperiosteal pocket. 3-0 chromic gut sutures in interrupted fashion were placed to secure the drain. The site was noted to be hemostatic at the end of the case. A 4 x 4 dressing tied with umbilical tape was utilized as a pressure dressing. The patient was then awakened, transferred to her usual bed, and transported to PACU in the care of her surgical team. /[id number]/MODL MTDD
--- NOTE | 2017-09-02 09:52 | GOP ---
[f rep st] ORAL & MAXILLOFACIAL SURGERY OPERATIVE REPORT DATE OF OPERATION: 09/02/17 SURGEON: Samina Lieberman DDS, MD PRIMARY EMR ANALYST: none ANESTHESIA: IV GA. PREOPERATIVE DIAGNOSIS: Right mandibular subperiosteal abscess. POSTOPERATIVE DIAGNOSIS: Right mandibular subperiosteal abscess. PROCEDURE PERFORMED: Exploration, I&D of right mandibular subperiosteal abscess , placement of drain. ESTIMATED BLOOD LOSS: minimal FINDINGS: purulent drainage. DRAINS: [place] x 1 intraorally. CULTURES: 2 aerobic/anaerobic cultures. URINE OUTPUT: None recorded. DISPOSITION: Floor. INDICATIONS: The patient is a 21-year-old female who is approximately 10 days status post extraction of her wisdom teeth by an outside oral surgeon. She developed progressive pain and swelling of her right face 4 days postoperatively. She has been admitted for IV antibiotics. CT imaging demonstrates a fluid collection of the right mandibular subperiosteal region, and OMFS was consulted for surgical intervention. Risks, benefits, and complications of the procedure were explained to the patient, all questions were addressed, and the consent form was signed. DESCRIPTION OF PROCEDURE: The patient was correctly identified in the preoperative holding area and transported to [facility]. She was transferred to her bed in the supine position where all ASA monitors were attached. She was induced under anesthesia utilizing an intravenous route. She was prepped and draped in the usual sterile fashion. A time-out was performed where all members of the team were in agreement with the procedure. A bite block was placed, and 6 cc of 0.5% Marcaine with 1:200,000 epinephrine was given to the right inferior alveolar, lingual, and buccal nerves. A throat pack was placed. The oral cavity was brushed with Peridex. A crestal incision #29 - 31 with a posterior hockey-stick extension was developed and a full-thickness mucoperiosteal flap was created. ~ 3 cc's of purulent drainage was obtained associated with the #32 edentulous site. Two aerobic/anaerobic cultures were taken at this time. The extraction socket was curettaged of all debris, and the right mandible was explored for post-surgical debris. Thorough irrigation with normal saline was performed and a half-inch Pati was trimmed and secured into the right mandibular subperiosteal pocket. 3-0 chromic gut sutures in interrupted fashion were placed to secure the drain. The site was noted to be hemostatic at the end of the case. A 4 x 4 dressing tied with umbilical tape was utilized as a pressure dressing. The patient was then awakened, transferred to her usual bed, and transported to PACU in the care of her surgical team. /[id number]/MODL MTDD
--- NOTE | 2017-09-02 09:52 | GOP ---
[f rep st] ORAL & MAXILLOFACIAL SURGERY OPERATIVE REPORT DATE OF OPERATION: 09/02/17 SURGEON: Samina Lieberman DDS, MD PRIMARY RUBBER COMPOUNDER: none ANESTHESIA: IV GA. PREOPERATIVE DIAGNOSIS: Right mandibular subperiosteal abscess. POSTOPERATIVE DIAGNOSIS: Right mandibular subperiosteal abscess. PROCEDURE PERFORMED: Exploration, I&D of right mandibular subperiosteal abscess , placement of drain. ESTIMATED BLOOD LOSS: minimal FINDINGS: purulent drainage. DRAINS: [place] x 1 intraorally. CULTURES: 2 aerobic/anaerobic cultures. URINE OUTPUT: None recorded. DISPOSITION: Floor. INDICATIONS: The patient is a 21-year-old female who is approximately 10 days status post extraction of her wisdom teeth by an outside oral surgeon. She developed progressive pain and swelling of her right face 4 days postoperatively. She has been admitted for IV antibiotics. CT imaging demonstrates a fluid collection of the right mandibular subperiosteal region, and OMFS was consulted for surgical intervention. Risks, benefits, and complications of the procedure were explained to the patient, all questions were addressed, and the consent form was signed. DESCRIPTION OF PROCEDURE: The patient was correctly identified in the preoperative holding area and transported to [facility]. She was transferred to her bed in the supine position where all ASA monitors were attached. She was induced under anesthesia utilizing an intravenous route. She was prepped and draped in the usual sterile fashion. A time-out was performed where all members of the team were in agreement with the procedure. A bite block was placed, and 6 cc of 0.5% Marcaine with 1:200,000 epinephrine was given to the right inferior alveolar, lingual, and buccal nerves. A throat pack was placed. The oral cavity was brushed with Peridex. A crestal incision #29 - 31 with a posterior hockey-stick extension was developed and a full-thickness mucoperiosteal flap was created. ~ 3 cc's of purulent drainage was obtained associated with the #32 edentulous site. Two aerobic/anaerobic cultures were taken at this time. The extraction socket was curettaged of all debris, and the right mandible was explored for post-surgical debris. Thorough irrigation with normal saline was performed and a half-inch Pati was trimmed and secured into the right mandibular subperiosteal pocket. 3-0 chromic gut sutures in interrupted fashion were placed to secure the drain. The site was noted to be hemostatic at the end of the case. A 4 x 4 dressing tied with umbilical tape was utilized as a pressure dressing. The patient was then awakened, transferred to her usual bed, and transported to PACU in the care of her surgical team. /[id number]/MODL MTDD
[2017-09-02] MEDS: BIRTH CONTROL PO SCH (10:15)
[2017-09-02] MEDS: IBUPROFEN 200 MG TAB PO PRN (10:29)
[2017-09-02] MEDS: CHLORHEXIDINE GLUCONATE 15 ML UDL PO SCH ×2 (11:07→20:16)
[2017-09-02] MEDS: oxyCODONE IR 5 MG TAB PO PRN ×2 (11:13→13:38)
[2017-09-02] MEDS ORDERED: KETOROLAC 30 MG/1 ML SDV IVP ONE (14:21)
--- NOTE | 2017-09-02 15:17 | ASMTCMCOM ---
CM Note CM Note Notes: Reviewed chart for discharge plan, pt's progress. Per MD notes, Hospitalist and ID met w/ pt to discuss importance of having dental procedure despite pt's financial concerns. Pt agreeable to proceed w/ surgery; s/p I&D of tooth w/ placement of a Pati drain. Pt's discharge needs remain TBD at this time (unclear if pt will require prolonged course of IV antibiotics). CM will cont to follow for assistance w/ financial concerns and any potential needs. Date Signed: 09/02/2017 03:17 PM Electronically Signed By:Surekha Elder RN
[2017-09-02] MEDS: ACETAMINOPHEN 325 MG TAB PO PRN ×2 (15:51→20:16)
[2017-09-02] MEDS: KETOROLAC 15 MG/1 ML SDV IVP SCH (18:08)
[2017-09-02] MEDS: MELATONIN 3 MG TAB PO SCH (20:16)
[2017-09-02] MEDS ORDERED: MELATONIN 3 MG TAB PO SCH (21:00)
[2017-09-03] MEDS: KETOROLAC 15 MG/1 ML SDV IVP SCH ×2 (00:48→05:18)
[2017-09-03] MEDS: AMPICILLIN/SULBACTAM 3 GM in NS 100 ML IV SCH ×4 (02:52→20:29)
[2017-09-03] MEDS: NS 1,000 ML IV SCH (08:27)
[2017-09-03] MEDS: CHLORHEXIDINE GLUCONATE 15 ML UDL PO SCH ×2 (08:28→20:29)
[2017-09-03] MEDS: BIRTH CONTROL PO SCH (08:46)
--- NOTE | 2017-09-03 09:01 | PCMIDPN ---
Assessment/Plan: 1. Subperiosteal abscess after wisdom tooth removal postop day 1. status post incision and drainage: Still having fevers, but overall looks better. Facial swelling also much improved. Continue Unasyn as is. Please see #2. Sincerely appreciate 's care. 2. Fevers: Send stool for C difficile toxin in the setting of new diarrhea. No evidence of drug eruption. Encouraged patient to get out of bed and walked the halls, and will bring her an incentive spirometer. Abscess cultures are pending, but would not add any additional antibiotics at this time (i.e., coverage for MRSA) and await culture results. Subjective: Status post incision and drainage of subperiosteal abscess yesterday. 3 cc of pus was drained, and a [place] was left in place. Spoke to microbiology lab. So far, only oral vincent is growing, but not a single pathogen, per se. Also of note, patient started having severe diarrhea last night. No associated abdominal pain. No blood. C difficile precautions instituted as a precautionary measure and stool will be sent. Objective: Unasyn 3 g IV q.6 hours day 2 T-max 38.7degrees Vital Signs Temp Pulse Resp BP Pulse Ox 37.8 C 75 14 108/63 94 09/03/17 07:24 09/03/17 07:24 09/03/17 07:24 09/03/17 07:24 09/03/17 07:24 Microbiology 09/02/17 08:50 Gram Stain - Final Other - Eswab 09/02/17 08:50 Gram Stain - Final Other - Eswab Laboratory Results 09/02/17 04:15 09/02/17 04:15 09/02/17 09/03/17 09/04/17 06:59 05:59 05:59 Intake Total Output Total Balance Mouth purulence with oral vincent only so far, no single pathogen identified. No Staph aureus Blood cultures negative - Physical Exam General Appearance: alert, no apparent distress EENT: other (Sided facial swelling better, but still evident. No overlying facial cellulitis. [place] in place in the right lower molar area. Some tenderness in this area.) Respiratory: lungs clear Cardiac/Chest: regular rate, rhythm, tachycardia Abdomen: non-tender, soft Skin: No rash ICD10 Worksheet Patient Problems: Problems Problem Status Onset Dental abscess Acute Facial cellulitis Acute
--- NOTE | 2017-09-03 09:14 | HOSPPROG ---
Hospitalist Progress Note Assessment/Plan: Patient is a 21-year-old female who presented the emergency room with facial pain, fever chills and sweats. Recently, she had all 4 wisdom teeth removed approximately 9 days ago. She did well until postop day number 4. When she developed a fever and malaise. In the emergency room a CT scan was performed which revealed a periodontal abscess. * right mandibular subperiosteal abscess status post wisdom tooth extraction appreciate Dr Lieberman On Unasyn Pain is improving * sirs much improved/ fever last night of 38.7 Lactate is stable * diarrhea Had more than 4 episodes this morning Checking for Clostridium difficile *Plan: continue IV antibiotics/ will resume IV fluids. Check labs. In addition will ask case management to help arrange for her to get outpatient care follow-up. She is new to the [facility] and has no primary care provider for follow-up. Her parents live in [place] Subjective: Loreto has less pain in the jaw area. Is feeling better overall. Objective: Vital Signs Temp Pulse Resp BP Pulse Ox 37.8 C 75 14 108/63 94 09/03/17 07:24 09/03/17 07:24 09/03/17 07:24 09/03/17 07:24 09/03/17 07:24 Microbiology 09/02/17 08:50 Gram Stain - Final Other - Eswab 09/02/17 08:50 Gram Stain - Final Other - Eswab Laboratory Results 09/02/17 04:15 09/02/17 04:15 09/02/17 09/03/17 09/04/17 06:59 05:59 05:59 Intake Total Output Total Balance PT 14.0 SEC (12.0-15.0) 08/31/17 14:00 INR 1.09 (0.83-1.16) 08/31/17 14:00 - Physical Exam Constitutional: appears nourished Eyes: PERRL Ears, Nose, Mouth, Throat: hearing normal Cardiovascular: regular rate and rhythym, tachycardia Respiratory: no respiratory distress Skin: other (right sided jaw swelling with enlarged lymph gland on right neck area) Neurologic: AAOx3 Psychiatric: interacting appropriately ICD10 Worksheet Patient Problems: Problems Problem Status Onset Dental abscess Acute Facial cellulitis Acute
[2017-09-03] MEDS ORDERED: IBUPROFEN 600 MG TAB PO PRN (09:15)
[2017-09-03 10:10] LABS: PLATELET COUNT 227 10^3/uL (150-400)
--- NOTE | 2017-09-03 10:17 | SOAPPROG ---
SOAP Progress Note Assessment/Plan: Assessment: 21 y F POD 1 of I&D of right mandibular subperiosteal abscess and drain placement, stable in regards to OMFS standpoint of post-surgical odontogenic abscess. Plan: discussed with pt and team, recommend outpatient visit with Dr. Lieberman for drain management abx per team d/c with periogard mouthrinse bid for one week pt has post-op instructions, all questions addressed appreciate consult 09/03/17 10:20 Subjective: pain has been manageable overnight, development of diarrhea Objective: Vital Signs Temp Pulse Resp BP Pulse Ox 37.8 C 75 14 108/63 94 09/03/17 07:24 09/03/17 07:24 09/03/17 07:24 09/03/17 07:24 09/03/17 07:24 Microbiology 09/02/17 08:50 Gram Stain - Final Other - Eswab 09/02/17 08:50 Gram Stain - Final Other - Eswab Laboratory Results 09/03/17 10:02 09/02/17 09/03/17 09/04/17 06:59 05:59 05:59 Intake Total Output Total Balance PT 14.0 SEC (12.0-15.0) 08/31/17 14:00 INR 1.09 (0.83-1.16) 08/31/17 14:00 right lower facial 3rd edema and induration, consistent with POD 1 presentation , CN II-XII grossly intact, mandibular angle and inferior border palpable, KALE 25 mm, to 30 mm with assistance, ana maría drain secured to right mandibular vestibule ICD10 Worksheet Patient Problems: Problems Problem Status Onset Dental abscess Acute Facial cellulitis Acute
[2017-09-03] MEDS: oxyCODONE IR 5 MG TAB PO PRN (18:33)
--- NOTE | 2017-09-03 18:33 | ASMTCMCOM ---
CM Note CM Note Notes: Reviewed chart for discharge plan, pt's progress. Met w/ pt to discuss financial concerns. 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 Enc pt to meet w/ financial counseling on Mon09/04/17 to discuss further; LVM at xt [phone] for Financial Counseling to see pt; business card provided. Enc pt to focus on healing for now; support and reassurance provided. Pt states she will be fine to discharge home independently w/ outpt follow up w/ Oral Maxillofacial Surgery, when she is stable. CM will cont to follow. Current Discharge Plan: Home independently w/ outpt follow up Date Signed: 09/03/2017 06:32 PM Electronically Signed By:Surekha Elder RN
--- NOTE | 2017-09-03 18:33 | ASMTCMCOM ---
CM Note CM Note Notes: Reviewed chart for discharge plan, pt's progress. Met w/ pt to discuss financial concerns. 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 Enc pt to meet w/ financial counseling on Mon09/04/17 to discuss further; LVM at xt [phone] for Financial Counseling to see pt; business card provided. Enc pt to focus on healing for now; support and reassurance provided. Pt states she will be fine to discharge home independently w/ outpt follow up w/ Oral Maxillofacial Surgery, when she is stable. CM will cont to follow. Current Discharge Plan: Home independently w/ outpt follow up Date Signed: 09/03/2017 06:32 PM Electronically Signed By:Surekha Elder RN
--- NOTE | 2017-09-03 18:33 | ASMTCMCOM ---
CM Note CM Note Notes: Reviewed chart for discharge plan, pt's progress. Met w/ pt to discuss financial concerns. 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 Enc pt to meet w/ financial counseling on Mon09/04/17 to discuss further; LVM at xt [phone] for Financial Counseling to see pt; business card provided. Enc pt to focus on healing for now; support and reassurance provided. Pt states she will be fine to discharge home independently w/ outpt follow up w/ Oral Maxillofacial Surgery, when she is stable. CM will cont to follow. Current Discharge Plan: Home independently w/ outpt follow up Date Signed: 09/03/2017 06:32 PM Electronically Signed By:Surekha Elder RN
[2017-09-03] MEDS: MELATONIN 3 MG TAB PO SCH (20:33)
[2017-09-04] MEDS: AMPICILLIN/SULBACTAM 3 GM in NS 100 ML IV SCH ×2 (03:24→08:41)
[2017-09-04 03:31] VITALS: TEMP 98.2; O2SAT 95
[2017-09-04] MEDS: CHLORHEXIDINE GLUCONATE 15 ML UDL PO SCH (08:42)
[2017-09-04 09:03] VITALS: BP 108/66; PULSE 64; RESP 14
--- NOTE | 2017-09-04 09:59 | HOSPPROG ---
Hospitalist Progress Note Assessment/Plan: Patient is a 21-year-old female who presented the emergency room with facial pain, fever chills and sweats. Recently, she had all 4 wisdom teeth removed approximately 9 days ago. She did well until postop day number 4. When she developed a fever and malaise. In the emergency room a CT scan was performed which revealed a periodontal abscess. * right mandibular subperiosteal abscess status post wisdom tooth extraction appreciate Dr Lieberman On Unasyn much better eating, drinking, pain under control * sirs none further Lactate is stable * diarrhea Clostridium difficile is negative *Plan:dc home today, will dc on Augmentin Subjective: Idabelle is feeling well today. Objective: Vital Signs Temp Pulse Resp BP Pulse Ox 36.8 C 64 14 108/66 95 09/04/17 08:00 09/04/17 08:00 09/04/17 08:00 09/04/17 08:00 09/04/17 08:00 Microbiology 09/02/17 08:50 Gram Stain - Final Other - Eswab 09/02/17 08:50 Gram Stain - Final Other - Eswab Laboratory Results 09/03/17 10:02 09/03/17 10:02 09/03/17 09/04/17 09/05/17 05:59 05:59 05:59 Intake Total 300 Output Total 500 Balance -200 PT 14.0 SEC (12.0-15.0) 08/31/17 14:00 INR 1.09 (0.83-1.16) 08/31/17 14:00 - Physical Exam Constitutional: no apparent distress, appears nourished, not in pain Eyes: PERRL Ears, Nose, Mouth, Throat: hearing normal Respiratory: no respiratory distress Skin: warm, other (right jaw area w much less swelling compared to when she was admitted) Musculoskeletal: full muscle strength Neurologic: AAOx3 Psychiatric: interacting appropriately ICD10 Worksheet Patient Problems: Problems Problem Status Onset Dental abscess Acute Facial cellulitis Acute
[2017-09-04] MEDS: BIRTH CONTROL PO SCH (10:04)
--- NOTE | 2017-09-04 10:55 | GDS ---
[f rep st] DISCHARGE SUMMARY DISCHARGE DIAGNOSES: 1. Right mandibular subperiosteal abscess, status post wisdom tooth extraction. 2. Systemic inflammatory response syndrome. 3. Diarrhea. CONSULTATIONS: 1. Dr. Katerin Ellis. 2. Dr. Sari Lieberman. HISTORY OF PRESENT ILLNESS: The patient is a 21-year-old female without any significant past medical history, who had her wisdom teeth removed approximately 10 days ago at [facility]. As f ar as she knows, there were no complications. Approximately 4 days after surgery, she began to feel poorly. She had fever and chills. 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 She started to develop signifi cant swelling and erythema. A CT scan of the neck revealed significant facial cellulitis on the righ t with a 1.3 x 1.1 x 1.5 cm periodontal abscess noted lateral to the right molar tooth socket. She w as also found to have subcutaneous cellulitis and soft tissue inflammatory reaction. She was admitte d and treated with Unasyn. She was seen and evaluated by the infectious disease doctor, and by the [facility] surgeon. On 09/02/2017, she had an I and D of the right mandibular subperiosteal abscess and cece cement of drain. She improved significantly after the procedure. She will be discharged home, and c ontinue antibiotics, and follow up with Dr. Lieberman and Dr. Kanu Young in the outpatient setting. HOSPITAL COURSE: 1. Right mandibular subperiosteal abscess, status post wisdom tooth extraction, and status post I an d D. she improved significantly after getting surgery done. She will be discharged home, and furthe r follow up with Dr. Lieberman in the outpatient setting. 2. Systemic inflammatory response syndrome, stable. 3. Diarrhea. Clostridium difficile is negative. DISCHARGE CONDITION: Stable. Blood pressure is 108/66, O2 sats on room air 95%, respiratory rate is 14, pulse is 64, temperature is 36.8 Celsius. MEDICATIONS AT DISCHARGE: Please see the EMR. DISCHARGE INSTRUCTIONS: 1. To use the PerioGard mouthwash twice a day. 2. To follow up with Dr. Lieberman. 3. Take antibiotics as prescribed. 4. To follow up with Dr. Kanu Young on 09/06/2017 at 1:30 p.m. /[id number]/[facility]
--- NOTE | 2017-09-04 10:55 | GDS ---
[f rep st] DISCHARGE SUMMARY DISCHARGE DIAGNOSES: 1. Right mandibular subperiosteal abscess, status post wisdom tooth extraction. 2. Systemic inflammatory response syndrome. 3. Diarrhea. CONSULTATIONS: 1. Dr. Katerin Ellis. 2. Dr. Sari Lieberman. HISTORY OF PRESENT ILLNESS: The patient is a 21-year-old female without any significant past medical history, who had her wisdom teeth removed approximately 10 days ago at [facility]. As f ar as she knows, there were no complications. Approximately 4 days after surgery, she began to feel poorly. She had fever and chills. 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 She started to develop signifi cant swelling and erythema. A CT scan of the neck revealed significant facial cellulitis on the righ t with a 1.3 x 1.1 x 1.5 cm periodontal abscess noted lateral to the right molar tooth socket. She w as also found to have subcutaneous cellulitis and soft tissue inflammatory reaction. She was admitte d and treated with Unasyn. She was seen and evaluated by the infectious disease doctor, and by the [facility] surgeon. On 09/02/2017, she had an I and D of the right mandibular subperiosteal abscess and cece cement of drain. She improved significantly after the procedure. She will be discharged home, and c ontinue antibiotics, and follow up with Dr. Lieberman and Dr. Kanu Young in the outpatient setting. HOSPITAL COURSE: 1. Right mandibular subperiosteal abscess, status post wisdom tooth extraction, and status post I an d D. she improved significantly after getting surgery done. She will be discharged home, and furthe r follow up with Dr. Lieberman in the outpatient setting. 2. Systemic inflammatory response syndrome, stable. 3. Diarrhea. Clostridium difficile is negative. DISCHARGE CONDITION: Stable. Blood pressure is 108/66, O2 sats on room air 95%, respiratory rate is 14, pulse is 64, temperature is 36.8 Celsius. MEDICATIONS AT DISCHARGE: Please see the EMR. DISCHARGE INSTRUCTIONS: 1. To use the PerioGard mouthwash twice a day. 2. To follow up with Dr. Lieberman. 3. Take antibiotics as prescribed. 4. To follow up with Dr. Kanu Yougn on 09/06/2017 at 1:30 p.m. /[id number]/[facility]
--- NOTE | 2017-09-04 11:29 | ASMTCMCOM ---
CM Note CM Note Notes: Chart reviewed. Patient medically cleared for discharge. Provided with the [facility] to establish primary care, otherwise independent, CM available if other needs arise. Date Signed: 09/04/2017 11:28 AM Electronically Signed By:Queenie Dumont RN
--- NOTE | 2017-09-04 11:29 | ASMTCMCOM ---
CM Note CM Note Notes: Chart reviewed. Patient medically cleared for discharge. Provided with the [facility] to establish primary care, otherwise independent, CM available if other needs arise. Date Signed: 09/04/2017 11:28 AM Electronically Signed By:Queenie Dumont RN
[2017-09-04] MEDS ORDERED: FLU VACC QS 2017-18 (3YR+)/PF 0.5 ML SYR (FLUARIX QUAD) IM ONE (11:45)
--- NOTE | 2017-09-04 14:11 | ASDISCHSUM ---
Discharge Information Plan Status:Home with No Needs Medically Cleared to Leave:09/03/2017 Discharge Date:09/04/2017 12:17 PM CM D/C Disposition:Home, Routine, Self-Care ADT D/C Disposition:Home, Routine, Self-Care Projected Discharge Date:09/04/2017 12:17 PM Transportation at D/C:Friend Discharge Delay Reason: Follow-Up Date:09/04/2017 12:17 PM Discharge Slot: Final Diagnosis: Placement Information Patient Contact Information Contact Name:MIKHAIL Relationship:Grandparent Address: Work Phone: City: [facility] Phone: [facility]/Zip Code: Email: Financial Information Financial Class: Primary Plan Desc:MEDICAID HEALTH [facility] Primary Plan Number:[id number] Secondary Plan Desc: Secondary Plan Number: Assessment Information [facility] Progress Note CM Note CM Note Notes: Pt. is a 21-year-old woman admitted with a periodontal abscess. Hx. recent wisdom teeth extraction. Pt. 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 Pt. currently on IV antibiotics. CM to follow in case Pt needs outpatient IVs. Current plan: Likely independent, however monitor for any outpatient IV antibiotic needs. Date Signed: 09/01/2017 02:26 PM Electronically Signed By:Rosa Guerra LCSW [facility] CM Progress Note CM Note CM Note Notes: Later today bedside RN came to SWer concerned that apparently oral surgeon who plans to do procedure tomorrow does not take Medicaid and will bill Pt. for her services. Pt. is a young woman just starting out in life and receiving a substantial medical bill should be the last resort. Pt. is OK with transferring hospitals if needed. Cheyanne called hospitalist who plans to contact ID to discuss alternative plans for Pt. Updated Pt. in room. Pt. very grateful for advocacy and experiencing a lot of distress regarding potential medical bill. Cheyanne also notified Pt. that while her current hospital stay (minus oral surgeon at this time) will be covered by Medicaid, she should change her Medicaid to a front range plan through [facility]. Pt. still has a [place]-based Medicaid that needs to be changed. Pt. understood and will work on changing her Medicaid. Current plan: CM to follow in case Pt. will need IV antibiotics at d/c. Date Signed: 09/01/2017 04:45 PM Electronically Signed By:Rosa Guerra LCSW [facility] Progress Note CM Note CM Note Notes: Reviewed chart for discharge plan, pt's progress. Per MD notes, Hospitalist and ID met w/ pt to discuss importance of having dental procedure despite pt's financial concerns. Pt agreeable to proceed w/ surgery; s/p I&D of tooth w/ placement of a [place] drain. Pt's discharge needs remain TBD at this time (unclear if pt will require prolonged course of IV antibiotics). CM will cont to follow for assistance w/ financial concerns and any potential needs. Date Signed: 09/02/2017 03:17 PM Electronically Signed By:Surekha Elder RN [facility] Progress Note CM Note CM Note Notes: Reviewed chart for discharge plan, pt's progress. Met w/ pt to discuss financial concerns. 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 Enc pt to meet w/ financial counseling on Mon09/04/17 to discuss further; LVM at xt [phone] for Financial Counseling to see pt; business card provided. Enc pt to focus on healing for now; support and reassurance provided. Pt states she will be fine to discharge home independently w/ outpt follow up w/ Oral Maxillofacial Surgery, when she is stable. CM will cont to follow. Current Discharge Plan: Home independently w/ outpt follow up Date Signed: 09/03/2017 06:32 PM Electronically Signed By:Surekha Elder RN [facility] CM Progress Note CM Note CM Note Notes: Chart reviewed. Patient medically cleared for discharge. Provided with the [facility] to establish primary care, otherwise independent, CM available if other needs arise. Date Signed: 09/04/2017 11:28 AM Electronically Signed By:Queenie Dumont RN Intervention Information Intervention Type:*Incorrect Registration Date of Service:09/01/2017 11:39 AM Patient Type:Inpatient Staff Member:ROBERTA Myers, Mena Hours: Discipline: Severity: Comment:
--- NOTE | 2017-09-04 14:11 | ASDISCHSUM ---
Discharge Information Plan Status:Home with No Needs Medically Cleared to Leave:09/03/2017 Discharge Date:09/04/2017 12:17 PM CM D/C Disposition:Home, Routine, Self-Care ADT D/C Disposition:Home, Routine, Self-Care Projected Discharge Date:09/04/2017 12:17 PM Transportation at D/C:Friend Discharge Delay Reason: Follow-Up Date:09/04/2017 12:17 PM Discharge Slot: Final Diagnosis: Placement Information Patient Contact Information Contact Name:MIKHAIL Relationship:Grandparent Address: Work Phone: City: [facility] Phone: [facility]/Zip Code: Email: Financial Information Financial Class: Primary Plan Desc:MEDICAID HEALTH FIRST [facility] Primary Plan Number:[id number] Secondary Plan Desc: Secondary Plan Number: Assessment Information [facility] Progress Note CM Note CM Note Notes: Pt. is a 21-year-old woman admitted with a periodontal abscess. Hx. recent wisdom teeth extraction. Pt. 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 Pt. currently on IV antibiotics. CM to follow in case Pt needs outpatient IVs. Current plan: Likely independent, however monitor for any outpatient IV antibiotic needs. Date Signed: 09/01/2017 02:26 PM Electronically Signed By:Rosa Guerra LCSW [facility] CM Progress Note CM Note CM Note Notes: Later today bedside RN came to SWer concerned that apparently oral surgeon who plans to do procedure tomorrow does not take Medicaid and will bill Pt. for her services. Pt. is a young woman just starting out in life and receiving a substantial medical bill should be the last resort. Pt. is OK with transferring hospitals if needed. Cheyanne called hospitalist who plans to contact ID to discuss alternative plans for Pt. Updated Pt. in room. Pt. very grateful for advocacy and experiencing a lot of distress regarding potential medical bill. Cheyanne also notified Pt. that while her current hospital stay (minus oral surgeon at this time) will be covered by Medicaid, she should change her Medicaid to a front range plan through [facility]. Pt. still has a [place]-based Medicaid that needs to be changed. Pt. understood and will work on changing her Medicaid. Current plan: CM to follow in case Pt. will need IV antibiotics at d/c. Date Signed: 09/01/2017 04:45 PM Electronically Signed By:Rosa Guerra LCSW [facility] Progress Note CM Note CM Note Notes: Reviewed chart for discharge plan, pt's progress. Per MD notes, Hospitalist and ID met w/ pt to discuss importance of having dental procedure despite pt's financial concerns. Pt agreeable to proceed w/ surgery; s/p I&D of tooth w/ placement of a [place] drain. Pt's discharge needs remain TBD at this time (unclear if pt will require prolonged course of IV antibiotics). CM will cont to follow for assistance w/ financial concerns and any potential needs. Date Signed: 09/02/2017 03:17 PM Electronically Signed By:Surekha Elder RN [facility] Progress Note CM Note CM Note Notes: Reviewed chart for discharge plan, pt's progress. Met w/ pt to discuss financial concerns. 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 Enc pt to meet w/ financial counseling on Mon09/04/17 to discuss further; LVM at xt [phone] for Financial Counseling to see pt; business card provided. Enc pt to focus on healing for now; support and reassurance provided. Pt states she will be fine to discharge home independently w/ outpt follow up w/ Oral Maxillofacial Surgery, when she is stable. CM will cont to follow. Current Discharge Plan: Home independently w/ outpt follow up Date Signed: 09/03/2017 06:32 PM Electronically Signed By:Surekha Elder RN [facility] CM Progress Note CM Note CM Note Notes: Chart reviewed. Patient medically cleared for discharge. Provided with the [facility] to establish primary care, otherwise independent, CM available if other needs arise. Date Signed: 09/04/2017 11:28 AM Electronically Signed By:Queenie Dumont RN Intervention Information Intervention Type:*Incorrect Registration Date of Service:09/01/2017 11:39 AM Patient Type:Inpatient Staff Member:ROBERTA Myers, Mena Hours: Discipline: Severity: Comment:
--- NOTE | 2017-09-04 14:11 | ASDISCHSUM ---
Discharge Information Plan Status:Home with No Needs Medically Cleared to Leave:09/03/2017 Discharge Date:09/04/2017 12:17 PM CM D/C Disposition:Home, Routine, Self-Care ADT D/C Disposition:Home, Routine, Self-Care Projected Discharge Date:09/04/2017 12:17 PM Transportation at D/C:Friend Discharge Delay Reason: Follow-Up Date:09/04/2017 12:17 PM Discharge Slot: Final Diagnosis: Placement Information Patient Contact Information Contact Name:MIKHAIL Relationship:Grandparent Address: Work Phone: City: [facility] Phone: [facility]/Zip Code: Email: Financial Information Financial Class: Primary Plan Desc:MEDICAID HEALTH FIRST [facility] Primary Plan Number:[id number] Secondary Plan Desc: Secondary Plan Number: Assessment Information [facility] Progress Note CM Note CM Note Notes: Pt. is a 21-year-old woman admitted with a periodontal abscess. Hx. recent wisdom teeth extraction. Pt. 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 Pt. currently on IV antibiotics. CM to follow in case Pt needs outpatient IVs. Current plan: Likely independent, however monitor for any outpatient IV antibiotic needs. Date Signed: 09/01/2017 02:26 PM Electronically Signed By:Rosa Guerra LCSW [facility] CM Progress Note CM Note CM Note Notes: Later today bedside RN came to SWer concerned that apparently oral surgeon who plans to do procedure tomorrow does not take Medicaid and will bill Pt. for her services. Pt. is a young woman just starting out in life and receiving a substantial medical bill should be the last resort. Pt. is OK with transferring hospitals if needed. Cheyanne called hospitalist who plans to contact ID to discuss alternative plans for Pt. Updated Pt. in room. Pt. very grateful for advocacy and experiencing a lot of distress regarding potential medical bill. Cheyanne also notified Pt. that while her current hospital stay (minus oral surgeon at this time) will be covered by Medicaid, she should change her Medicaid to a front range plan through [facility]. Pt. still has a [place]-based Medicaid that needs to be changed. Pt. understood and will work on changing her Medicaid. Current plan: CM to follow in case Pt. will need IV antibiotics at d/c. Date Signed: 09/01/2017 04:45 PM Electronically Signed By:Rosa Guerra LCSW [facility] Progress Note CM Note CM Note Notes: Reviewed chart for discharge plan, pt's progress. Per MD notes, Hospitalist and ID met w/ pt to discuss importance of having dental procedure despite pt's financial concerns. Pt agreeable to proceed w/ surgery; s/p I&D of tooth w/ placement of a [place] drain. Pt's discharge needs remain TBD at this time (unclear if pt will require prolonged course of IV antibiotics). CM will cont to follow for assistance w/ financial concerns and any potential needs. Date Signed: 09/02/2017 03:17 PM Electronically Signed By:Surekha Elder RN [facility] Progress Note CM Note CM Note Notes: Reviewed chart for discharge plan, pt's progress. Met w/ pt to discuss financial concerns. 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 Enc pt to meet w/ financial counseling on Mon09/04/17 to discuss further; LVM at xt [phone] for Financial Counseling to see pt; business card provided. Enc pt to focus on healing for now; support and reassurance provided. Pt states she will be fine to discharge home independently w/ outpt follow up w/ Oral Maxillofacial Surgery, when she is stable. CM will cont to follow. Current Discharge Plan: Home independently w/ outpt follow up Date Signed: 09/03/2017 06:32 PM Electronically Signed By:Surekha Elder RN [facility] CM Progress Note CM Note CM Note Notes: Chart reviewed. Patient medically cleared for discharge. Provided with the [facility] to establish primary care, otherwise independent, CM available if other needs arise. Date Signed: 09/04/2017 11:28 AM Electronically Signed By:Queenie Dumont RN Intervention Information Intervention Type:*Incorrect Registration Date of Service:09/01/2017 11:39 AM Patient Type:Inpatient Staff Member:ROBERTA Myers, Mena Hours: Discipline: Severity: Comment:
== END 2017-09-04 12:17 | disposition home or self-care (01) | DRG 857 ==
LOC: OBSVTOIN 17:40 → F3E 18:30
PROVIDERS: ADMIT Hospitalist; ATTEND Hospitalist
PROC: 0C9 Mouth and Throat, Drainage (ICD-10-PCS; principal; 2017-09-02 08:00)
DX: T81.4XXA Infection following a procedure, initial encounter (principal); R65.10 Systemic inflammatory response syndrome (SIRS) of non-infectious origin without acute organ dysfunction; K12.2 Cellulitis and abscess of mouth; L03.211 Cellulitis of face; R19.7 Diarrhea, unspecified; Z23 Encounter for immunization
CPT/HCPCS: G0008; J0171; J0295; J1335; J1885; J2001; J2250; J2704; Q9967

== ENCOUNTER 2017-10-10 10:31 | Emergency (ER) | payer MEDICAID ==
[2017-10-10] MEDS ORDERED: IBUPROFEN 200 MG TAB PO ONE (10:52)
--- NOTE | 2017-10-10 12:22 | EDPHY ---
HPI/HX/ROS/PE/MDM - Data Points Imaging: Discussed imaging studies w/ call center receptionist Radiologist, I viewed and interpreted images myself Narrative: CHIEF COMPLAINT: Fever, vomiting, chills HISTORY OF PRESENT ILLNESS: This patient is a 21 year old female complaining of fever, vomiting, and chills onset yesterday evening. She was recently admitted 08/31/17 for one week for sepsis secondary to dental abscess and facial cellulitis. The first week following discharge, she felt well. She then had a two day fever and increased fatigue. This resolved, but she continued to feel fatigued and developed diarrhea. Last night, she had a coughing fit and felt lightheaded. Diarrhea has resolved. Today, her temperature was 102.7. She has felt chilled and weak. She has been vomiting frequently after eating. She has had an abnormally heavy menstrual cycle and cramping, and has noted breast tenderness. She is currently taking oral contraceptives, and took negative home test last week. She did receive a flu vaccination this year. No chest pain, shortness of breath , palpitations, diarrhea, urinary complaints, headache, sore throat, rhinorrhea. She denies any recent travel. REVIEW OF SYSTEMS: Aside from elements discussed in the HPI, a comprehensive 10-point review of systems was reviewed and is negative. PAST MEDICAL HISTORY: 1. Oral contraceptives 2. Sepsis secondary to dental abscess and facial cellulitis following wisdom tooth extraction. 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 Lives in [place]. Single VITAL SIGNS: Reviewed by me GENERAL: Well-developed, well-nourished, resting comfortably in no respiratory distress. HEENT: Atraumatic. Eyes: No icterus, no injection. Mouth: moist mucous membranes. No erythema or lesions. Neck: supple with no adenopathy. LUNGS: Clear to auscultation bilaterally, no wheezes, rhonchi or rales. CARDIAC: Regular rate and rhythm, no rubs, murmurs or gallops. ABDOMEN: Soft, mild suprapubic discomfort, left greater than right. Nondistended , bowel sounds normal. BACK: Inconsistent left cva tenderness? EXTREMITIES: No trauma. No edema. Range of motion is normal throughout. NEURO: Alert and oriented, grossly nonfocal. SKIN: Warm and dry, no rash. PSYCHIATRIC: Normal mentation, no agitation. Portions of this note were transcribed by a medical stenographer. I personally performed a history, physical exam, medical decision making, and confirmed accuracy of information the transcribed note. (Radha Santiago) ED Course: I took over care of this patient at 3:00 p.m.. The patient is awaiting results of a pelvic ultrasound. Per Dr. Santiago she is to be discharged if this study is negative. 5:00 p.m., spoke with Dr. Sp Power regarding the patient's pelvic ultrasound. This study showed some trace free fluid but was otherwise unremarkable. Dr. Power explained to me that on review of her CT of her abdomen and pelvis her bladder wall was slightly thickened and inflamed. She does have a white cells in her urine. 6:00 p.m., I evaluated this patient. There was a delay because I was called up to the ICU to help manage the patient's airway. On my evaluation she is up in the hallway talking on the phone. She does not appear toxic. She has no voice changes. On my physical exam her lungs are clear. Heart sounds normal. No tachycardia. No tachypnea. Pharyngeal exam she has some pharyngeal erythema with an exudate behind the right tonsil in the posterior pharynx. The tissues are symmetrical and there is no evidence of abscess. A strep swab was taken. She had a Monospot done which was negative as well as influenza but there was no strep assay performed during her initial workup. I discussed the results of her diagnostic workup. I explained the findings on her CT scan as well as my concern about white cells in her urine. She has follow-up with Dr. Young of Infectious Disease next Monday at 3:45 p.m.. I will discharge her with cefuroxime for treatment of possible cystitis. 6:25 p.m., rapid strep is negative. Culture pending. Results discussed with the patient. Plan is as above. Strict return to emergency department precautions reviewed with her. She feels comfortable going home. All of her questions were answered. She was discharged in good condition. Differential diagnosis includes viral syndrome, cystitis, viral pharyngitis. Sepsis, serious bacterial infection unlikely. (Tammie Soliz) 21 year old female presents with fever, vomiting, and chills onset yesterday evening. Exam unremarkable. She is mildly febrile at 38.1 degrees Celsius. Plan for labs including CBC, chemistries, UA, BHCG. Administered 400mg PO ibuprofen for pain and fever relief. Plan for chest x-ray. Chest x-ray negative for acute processes. BHCG negative. Plan for CT abdomen/ pelvis. 14:[address] Swenson, radiologist. CT abdomen negative for acute processes; no signs of appendicitis. Some thickening of bladder wall which may represent cystitis. Also has dilated loops of fluid filled bowel which may indicate colitis. Patient's evaluation is largely unremarkable [place] [address], and elevated CRP. Urinalysis has 5-10 white cells per high- power field. On re-examination at 3 o'clock, the patient reports that she does not feel like she has urinary tract infection, she has had no frequency or dysuria. She does report she has a history of a kidney infection as well and does not have this back pain which she has experienced in the past. On examination she continues to have bilateral lower quadrant/adnexal discomfort to palpation. Pelvic ultrasound was ordered. Patient's course also discussed with infectious disease. Dr. Young, infectious disease specialist will see this patient this at 3:45. Care assumed by Dr Soliz. We are awaiting results of ultrasound. 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 A UTI may be present although patient does not report urinary symptoms and has not had back pain/ flank pain to support a diagnosis of pyelonephritis. (Radha Santiago) - Data Points Imaging Results: Imaging Impressions Chest X-Ray 10/10/17 12:27 Impression: No pneumonia. Abdomen CT 10/10/17 13:06 Impression: 1. Possible cystitis versus bladder wall thickening related to incomplete distention. 2. Possible colitis in the region of the hepatic flexure. Is there any history of diarrhea or hematochezia? Results discussed with Dr. Santiago at 2:10 pm. General information for patients regarding this examination can be found at [email or web address]. If you have questions or comments about this report, please contact me at (hospital) or [phone] ([facility]). Pelvic/Renal Ultrasound 10/10/17 15:09 Impression: There is a small amount of free fluid in the pelvic cul-de-sac. There is no evidence of an ovarian mass or torsion. LIMITED ABDOMINAL (APPENDICEAL) ULTRASOUND Technique: The right lower quadrant was evaluated with a high-resolution linear transducer, utilizing graded compression and color Doppler. Findings: The cecum is identified, and is air-filled. The appendix is not identified, however there is no rebound tenderness, free fluid, or right lower quadrant mesenteric adenitis. Impression: Nondiagnostic assessment of the appendix. Findings were discussed with Tammie Jenkins MD at 17:02, on 10/10/2017. Abdomen Ultrasound 10/10/17 15:15 Impression: There is a small amount of free fluid in the pelvic cul-de-sac. There is no evidence of an ovarian mass or torsion. LIMITED ABDOMINAL (APPENDICEAL) ULTRASOUND Technique: The right lower quadrant was evaluated with a high-resolution linear transducer, utilizing graded compression and color Doppler. Findings: The cecum is identified, and is air-filled. The appendix is not identified, however there is no rebound tenderness, free fluid, or right lower quadrant mesenteric adenitis. Impression: Nondiagnostic assessment of the appendix. Findings were discussed with Tammie Jenkins MD at 17:02, on 10/10/2017. Laboratory Results: Laboratory Results 10/10/17 12:44 10/10/17 12:44 10/10/17 10/10/17 10/10/17 Unknown 18:10 14:05 WBC RBC Hgb Hct MCV MCH MCHC RDW Plt Count MPV Neut % (Auto) Lymph % (Auto) [place] % (Auto) Eos % (Auto) Baso % (Auto) Nucleat RBC Rel Count Absolute Neuts (auto) Absolute Lymphs (auto) Absolute Monos (auto) Absolute Eos (auto) Absolute Basos (auto) Absolute Nucleated RBC Immature Gran % Immature Gran # ESR PT INR APTT VBG Lactic Acid Sodium Potassium Chloride Carbon Dioxide Anion Gap BUN Creatinine Estimated GFR Glucose Calcium Total Bilirubin Conjugated Bilirubin Unconjugated Bilirubin AST ALT Alkaline Phosphatase C-Reactive Protein Total Protein Albumin Beta HCG, Qual Urine Color Urine Appearance Urine pH Ur Specific [place] Urine Protein Urine Ketones Urine Blood Urine Nitrate Urine Bilirubin Urine Urobilinogen Ur Leukocyte Esterase Urine RBC Urine WBC Ur Epithelial Cells Urine Mucus Urine Glucose Nasal Influenza A PCR NEGATIVE FOR FLU A (NEGATIVE) Nasal Influenza B PCR NEGATIVE FOR FLU B (NEGATIVE) Monoscreen Group A Strep Screen NEGATIVE (NEGATIVE) Group A Strep DNA NEGATIVE (NEGATIVE) 10/10/17 10/10/17 10/10/17 14:02 12:44 12:44 WBC RBC Hgb Hct MCV MCH MCHC RDW Plt Count MPV Neut % (Auto) Lymph % (Auto) [place] % (Auto) Eos % (Auto) Baso % (Auto) Nucleat RBC Rel Count Absolute Neuts (auto) Absolute Lymphs (auto) Absolute Monos (auto) Absolute Eos (auto) Absolute Basos (auto) Absolute Nucleated RBC Immature Gran % Immature Gran # ESR PT INR APTT VBG Lactic Acid Sodium Potassium Chloride Carbon Dioxide Anion Gap BUN Creatinine Estimated GFR Glucose Calcium Total Bilirubin Conjugated Bilirubin Unconjugated Bilirubin AST ALT Alkaline Phosphatase C-Reactive Protein Total Protein Albumin Beta HCG, Qual NEGATIVE Urine Color PALE YELLOW Urine Appearance CLEAR Urine pH 6.0 (5.0-7.5) Ur Specific [place] > 1.035 H (1.002-1.030) Urine Protein NEGATIVE (NEGATIVE) Urine Ketones TRACE H (NEGATIVE) Urine Blood NEGATIVE (NEGATIVE) Urine Nitrate NEGATIVE (NEGATIVE) Urine Bilirubin NEGATIVE (NEGATIVE) Urine Urobilinogen NEGATIVE EU EU (0.2-1.0) Ur Leukocyte Esterase TRACE H (NEGATIVE) Urine RBC 1-3 /hpf /hpf (0-3) Urine WBC 5-10 /hpf H /hpf (0-3) Ur Epithelial Cells TRACE /lpf /lpf (NONE-1+) Urine Mucus TRACE /lpf /lpf (NONE-1+) Urine Glucose NEGATIVE (NEGATIVE) Nasal Influenza A PCR Nasal Influenza B PCR Monoscreen NEGATIVE (NEGATIVE) Group A Strep Screen Group A Strep DNA 10/10/17 10/10/17 10/10/17 12:44 12:44 12:44 WBC RBC Hgb Hct MCV MCH MCHC RDW Plt Count MPV Neut % (Auto) Lymph % (Auto) [place] % (Auto) Eos % (Auto) Baso % (Auto) Nucleat RBC Rel Count Absolute Neuts (auto) Absolute Lymphs (auto) Absolute Monos (auto) Absolute Eos (auto) Absolute Basos (auto) Absolute Nucleated RBC Immature Gran % Immature Gran # ESR PT 14.6 SEC SEC (12.0-15.0) INR 1.12 (0.83-1.16) APTT 28.6 SEC SEC (23.0-38.0) VBG Lactic Acid 0.7 mmol/L mmol/L (0.7-2.1) Sodium 141 mEq/L mEq/L (134-144) Potassium 3.7 mEq/L mEq/L (3.5-5.2) Chloride 103 mEq/L mEq/L (97-110) Carbon Dioxide 24 mEq/l mEq/l (22-31) Anion Gap 14 mEq/L mEq/L (8-16) BUN 6 mg/dL L mg/dL (7-23) Creatinine 0.7 mg/dL mg/dL (0.6-1.0) Estimated GFR > 60 Glucose 86 mg/dL mg/dL (70-100) Calcium 9.5 mg/dL mg/dL (8.5-10.4) Total Bilirubin 1.2 mg/dL mg/dL (0.1-1.4) Conjugated Bilirubin 0.3 mg/dL mg/dL (0.0-0.5) Unconjugated Bilirubin 0.9 mg/dL mg/dL (0.0-1.1) AST 29 IU/L IU/L (14-46) ALT 48 IU/L IU/L (9-52) Alkaline Phosphatase 94 IU/L IU/L (38-126) C-Reactive Protein 25.2 mg/L H mg/L (<10.0) Total Protein 7.4 g/dL g/dL (6.3-8.2) Albumin 4.2 g/dL g/dL (3.5-5.0) Beta HCG, Qual Urine Color Urine Appearance Urine pH Ur Specific [place] Urine Protein Urine Ketones Urine Blood Urine Nitrate Urine Bilirubin Urine Urobilinogen Ur Leukocyte Esterase Urine RBC Urine WBC Ur Epithelial Cells Urine Mucus Urine Glucose Nasal Influenza A PCR Nasal Influenza B PCR Monoscreen Group A Strep Screen Group A Strep DNA 10/10/17 12:44 WBC 17.17 10^3/uL H 10^3/uL (3.80-9.50) RBC 4.61 10^6/uL 10^6/uL (4.18-5.33) Hgb 14.3 g/dL g/dL (12.6-16.3) Hct 39.9 % % (38.0-47.0) MCV 86.6 fL fL (81.5-99.8) MCH 31.0 pg pg (27.9-34.1) MCHC 35.8 g/dL g/dL (32.4-36.7) RDW 12.3 % % (11.5-15.2) Plt Count 340 10^3/uL 10^3/uL (150-400) MPV 9.0 fL fL (8.7-11.7) Neut % (Auto) 87.7 % H % (39.3-74.2) Lymph % (Auto) 7.5 % L % (15.0-45.0) [place] % (Auto) 3.6 % L % (4.5-13.0) Eos % (Auto) 0.3 % L % (0.6-7.6) Baso % (Auto) 0.3 % % (0.3-1.7) Nucleat RBC Rel Count 0.0 % % (0.0-0.2) Absolute Neuts (auto) 15.08 10^3/uL H 10^3/uL (1.70-6.50) Absolute Lymphs (auto) 1.28 10^3/uL 10^3/uL (1.00-3.00) Absolute Monos (auto) 0.61 10^3/uL 10^3/uL (0.30-0.80) Absolute Eos (auto) 0.05 10^3/uL 10^3/uL (0.03-0.40) Absolute Basos (auto) 0.05 10^3/uL 10^3/uL (0.02-0.10) Absolute Nucleated RBC 0.00 10^3/uL 10^3/uL (0-0.01) Immature Gran % 0.6 % % (0.0-1.1) Immature Gran # 0.10 10^3/uL 10^3/uL (0.00-0.10) ESR 9 MM/HR MM/HR (0-20) PT INR APTT VBG Lactic Acid Sodium Potassium Chloride Carbon Dioxide Anion Gap BUN Creatinine Estimated GFR Glucose Calcium Total Bilirubin Conjugated Bilirubin Unconjugated Bilirubin AST ALT Alkaline Phosphatase C-Reactive Protein Total Protein Albumin Beta HCG, Qual Urine Color Urine Appearance Urine pH Ur Specific [place] Urine Protein Urine Ketones Urine Blood Urine Nitrate Urine Bilirubin Urine Urobilinogen Ur Leukocyte Esterase Urine RBC Urine WBC Ur Epithelial Cells Urine Mucus Urine Glucose Nasal Influenza A PCR Nasal Influenza B PCR Monoscreen Group A Strep Screen Group A Strep DNA Medications Given: Discontinued Medications Sodium Chloride (Ns) 1,000 mls @ 0 mls/hr IV ONCE ONE; Wide Open PRN Reason: Protocol Stop: 10/10/17 12:28 Last Admin: 10/10/17 12:48 Dose: 1,000 mls Ceftriaxone Sodium/Dextrose (Rocephin 1 Gm (Premix)) 50 mls @ 100 mls/hr IV EDNOW ONE PRN Reason: Protocol Stop: 10/10/17 14:53 Last Admin: 10/10/17 15:12 Dose: 50 mls Ibuprofen (Motrin) 400 mg PO EDNOW ONE Stop: 10/10/17 10:53 Last Admin: 10/10/17 10:54 Dose: 400 mg General Time Seen by Provider: 10/10/17 12:08 Initial Vital Signs: Initial Vital Signs Temperature (C) 38.1 C 10/10/17 10:34 Heart Rate 103 H 10/10/17 10:34 Respiratory Rate 16 10/10/17 10:34 Blood Pressure 98/66 L 10/10/17 10:34 O2 Sat (%) 98 10/10/17 10:34 O2 Delivery Mode Room Air Allergies/Adverse Reactions: No Known Allergies Allergy (Verified 10/10/17 10:33) Home Medications: Medication Instructions Recorded Control 1 tab PO DAILY 08/31/17 Cefuroxime Axetil [Cefuroxime] 500 mg PO BID #14 tablet 10/10/17 Ondansetron Odt [Zofran Odt 4 mg 4 mg PO Q4 #14 tab 10/10/17 (*)] Promethazine HCl [Phenergan 12.5mg 12.5 mg GA BID PRN #8 suppr 10/10/17 supp (*)] Departure - Departure Disposition: Home, Routine, Self-Care Clinical Impression: Rule out gastroenteritis Fever Qualifiers: Fever type: due to other condition Qualified Code(s): R50.81 - Fever presenting with conditions classified elsewhere UTI (urinary tract infection) Qualifiers: Urinary tract infection type: acute cystitis Hematuria presence: without hematuria Qualified Code(s): N30.00 - Acute cystitis without hematuria Condition: Good Instructions: Urinary Tract Infection in Women (ED), Fever in Adults (ED) Additional Instructions: 1. Follow up with Dr. Hector, infectious disease specialist at 3:45pm on . 2. Take Tylenol or ibuprofen as directed below as needed for pain and fever reduction. 3. Take Zofran or Phenergan as prescribed as needed for nausea relief. 4. Return to the emergency department for uncontrollable fever, vomiting, or diarrhea, or other worsening of condition. 5. Take antibiotics through entire course of treatment. Referrals: Antonette Galeano MD [Medical Doctor] - As per Instructions Kanu Young MD [Medical Doctor] - As per Instructions Prescriptions: Cefuroxime Axetil [Cefuroxime] 500 mg PO BID #14 tablet Ondansetron Odt [Zofran Odt 4 mg (*)] 4 mg PO Q4 #14 tab Promethazine HCl [Phenergan 12.5mg supp (*)] 12.5 mg GA BID PRN #8 suppr PRN Reason: nausea Report Scribed for: Radha Santiago Report Scribed by: Vikki Mejias Date of Report: 10/10/17 Time of Report: 13:36
[2017-10-10] MEDS ORDERED: NS 1,000 ML IV ONE (12:27)
[2017-10-10 12:53] LABS: % IMMATURE GRANULYOCYTES 0.6 % (0.0-1.1); ADD DIFF? NO; ADD MORPH? NO; ADD SCAN? NO; ATYPICAL LYMPHOCYTE FLAG 30 (0-99); FRAGMENT RBC FLAG 0 (0-99); HEMATOCRIT 39.9 % (38.0-47.0); HEMOGLOBIN 14.3 g/dL (12.6-16.3); LEFT SHIFT FLG 0 (0-99); LIPEMIA HEMOLYSIS FLAG 90 (0-99); MEAN CELL HEMOGLOBIN CONCENTR. 35.8 g/dL (32.4-36.7); MEAN CELL VOLUME 86.6 fL (81.5-99.8); PLATELET CLUMPS FLAG 0 (0-99); PLATELET COUNT 340 10^3/uL (150-400); RED BLOOD CELL COUNT 4.61 10^6/uL (4.18-5.33); RED CELL DISTRIBUTION WIDTH 12.3 % (11.5-15.2)
[2017-10-10 13:02] LABS: APTT 28.6 SEC (23.0-38.0); INR 1.12 (0.83-1.16); PROTIME(PATIENT) 14.6 SEC (12.0-15.0)
[2017-10-10 13:20] LABS: ALANINE AMINOTRANSFERASE 48 IU/L (9-52); ALBUMIN 4.2 g/dL (3.5-5.0); ALKALINE PHOSPHATASE 94 IU/L (38-126); ANION GAP 14 mEq/L (8-16); ASPARTATE AMINOTRANSFERASE 29 IU/L (14-46); BILIRUBIN,TOTAL 1.2 mg/dL (0.1-1.4); BILIRUBIN-CONJUGATED 0.3 mg/dL (0.0-0.5); BILIRUBIN-UNCONJUGATED 0.9 mg/dL (0.0-1.1); C-REACTIVE PROTEIN 25.2 mg/L (<10.0); CALCIUM 9.5 mg/dL (8.5-10.4); CARBON DIOXIDE 24 mEq/l (22-31); CHLORIDE 103 mEq/L (97-110); CREATININE 0.7 mg/dL (0.6-1.0); GLOMERULAR FILTRATION RATE > 60; GLUCOSE 86 mg/dL (70-100); POTASSIUM 3.7 mEq/L (3.5-5.2); SODIUM 141 mEq/L (134-144); TOTAL PROTEIN 7.4 g/dL (6.3-8.2)
[2017-10-10 13:22] LABS: SEDIMENTATION RATE 9 MM/HR (0-20)
[2017-10-10] MEDS ORDERED: IOPAMIDOL (ISOVUE-300) 100 ML BTL ONE (13:31)
[2017-10-10 14:13] LABS: COLOR PALE YELLOW; LEUKOCYTE ESTERASE,URINE TRACE (NEGATIVE); NITRITE,URINE NEGATIVE (NEGATIVE)
[2017-10-10 14:15] LABS: MUCUS TRACE /lpf (NONE-1+)
[2017-10-10 15:15] VITALS: RESP 18
[2017-10-10 20:08] VITALS: BP 118/72; PULSE 90; TEMP 98.6; O2SAT 97
== END 2017-10-10 20:08 | disposition home or self-care (01) ==
PROC: 3E0337Z Introduction of Electrolytic and Water Balance Substance into Peripheral Vein, Percutaneous Approach (ICD-10-PCS; principal; 2017-10-10)
DX: N30.00 Acute cystitis without hematuria (principal); B96.89 Other specified bacterial agents as the cause of diseases classified elsewhere; E86.9 Volume depletion, unspecified
CPT/HCPCS: 96365; J0696; Q9967

== ENCOUNTER 2017-10-29 01:53 | Emergency (ER) | payer MEDICAID ==
[2017-10-29 01:59] VITALS: TEMP 98.6
--- NOTE | 2017-10-29 02:39 | EDPHY ---
H & P Stated Complaint: fever, cough since 10/27 Time Seen by Provider: 10/29/17 02:33 HPI/ROS: Chief Complaint: Cough, fever HPI: 21-year-old female who had a oral abscess with resulted in SIRS in August. Since that time she has been having weekly intermittent fevers for which she is being followed by Dr. Young from Infectious Disease. Her workup has been negative thus far. She is presenting tonight after having 2 days of worsening cough productive of a greenish sputum. She states she had a fever this morning to 102. This evening she went to a concert. During the concert she been getting worsening tightness in her throat miss since that she was kind of choking because of mucus. She came home from [place] on the bus. She does sleep in the bus and states she is feeling much better now. No nausea or vomiting. No chest pain or shortness of breath. My ROS PMH: SIRS secondary to an oral abscess and cellulitis Social History: No smoking, rare alcohol, no recreational drug use Family History: non-contributory Physical Exam: Gen: Awake, Alert, No Distress HEENT: Nose: no rhinorrhea Eyes: PERRLA, EOMI Mouth: Moist mucosa Neck: Supple, no JVD Chest: nontender, lungs clear to auscultation Heart: S1, S2 normal, no murmur Abd: Soft, non-tender, no guarding Back: no CVA tenderness, no midline tenderness Ext: no edema, non-tender Skin: no rash Neuro: CN II-XII intact, Sensation grossly intact, Strength 5/5 in bilateral upper and lower extremities - Personal History LMP (Females 10-55): 22-28 Days Ago Current Tetanus/Diphtheria Vaccine: Yes - Medical/Surgical History Hx Asthma: No Hx Chronic Respiratory Disease: No Hx Diabetes: No Hx Cardiac Disease: No Hx Renal Disease: No Hx Cirrhosis: No Hx Alcoholism: No Hx HIV/AIDS: No Hx Splenectomy or Spleen Trauma: No Other PMH: PSHx: wisdom teeth. PMHx: sepsis post wisdom tooth extraction/tooth abces - Social History Smoking Status: Never smoked Constitutional: Initial Vital Signs Temperature (C) 37 C 10/29/17 01:56 Heart Rate 106 H 10/29/17 01:56 Respiratory Rate 16 10/29/17 01:56 Blood Pressure 108/70 10/29/17 01:56 O2 Sat (%) 97 10/29/17 01:56 O2 Delivery Mode Room Air Allergies/Adverse Reactions: No Known Allergies Allergy (Verified 10/10/17 10:33) Home Medications: Medication Instructions Recorded Control 1 tab PO DAILY 08/31/17 AZITHROMYCIN [Z-PACK] 250 mg PO DAILY #6 tab 10/29/17 Medical Decision Making - Diagnostics Imaging Results: Chest x-ray shows a mild patchy infiltrate no light lower chest as compared to a prior chest x-ray. This is my interpretation. Imaging: I viewed and interpreted images myself ED Course/Re-evaluation: 21-year-old presenting with fever and cough which has been worsening for the last few days. Chest x-ray shows a mild patchy infiltrate in the right chest compared to her prior. Will start her on azithromycin. Will have her follow up with her infectious disease doctor in 2-3 days. Departure - Departure Disposition: Home, Routine, Self-Care Clinical Impression: Pneumonia Condition: Good Instructions: Pneumonia (ED) Additional Instructions: Please take your full course of antibiotics. Follow up with Dr. Young in 2-3 days. Return to the emergency department for increasing shortness of breath, uncontrolled fevers or chills, chest pain, worsening cough, or any other concerns. Referrals: Kanu Young MD [Medical Doctor] - As per Instructions Prescriptions: AZITHROMYCIN [Z-PACK] 250 mg PO DAILY #6 tab
[2017-10-29] MEDS ORDERED: AZITHROMYCIN 250 MG TAB PO ONE (03:46)
[2017-10-29 04:09] VITALS: BP 103/73; PULSE 96; RESP 18; O2SAT 96
== END 2017-10-29 04:08 | disposition home or self-care (01) ==
DX: J18.9 Pneumonia, unspecified organism (principal)

== ENCOUNTER 2018-01-06 18:05 | Emergency (ER) | payer MEDICAID, OTHER ==
[2018-01-06] MEDS ORDERED: IBUPROFEN 600 MG TAB PO ONE ×2 (19:38→19:43)
[2018-01-06] MEDS ORDERED: ACETAMINOPHEN 500 MG TAB ONE (19:38)
[2018-01-06] MEDS ORDERED: NS 1,500 ML IV ONE (19:39)
--- NOTE | 2018-01-06 19:43 | EDPHY ---
H & P Stated Complaint: ST, fever, rash on thigh starting Monday Time Seen by Provider: 01/06/18 19:31 HPI/ROS: CHIEF COMPLAINT: Sore throat, fever, body aches HISTORY OF PRESENT ILLNESS: Patient is a 22-year-old female who comes to the emergency department complaining of a sore throat, fever and body aches for the last 3 days. She had a dental abscess that required hospitalization for sepsis criteria in August. Since then she has had repeated infections and fevers. 1 time she had the flu , another time she had pneumonia and 1 time she had a fever with no identifiable source. She states that or last 3 days her symptoms have returned. Few nights ago she woke up with sweats and body aches and noticed a rash to her right thigh. The rash is now gone but she took pictures on her phone. Today she developed a very sore throat. No shortness of breath. She does have a mild dry cough. No headache or neck pain. REVIEW OF SYSTEMS: Constitutional: See HPI EENTM: See HPI Respiratory: See HPI Cardiac: denies: chest pain, irregular heart rate, lightheadedness, palpitations Gastrointestinal/Abdominal: denies: abdominal pain, diarrhea, nausea, vomiting, blood streaked stools Genitourinary: denies: dysuria, frequency, hematuria, pain Musculoskeletal: denies: joint pain, muscle pain Skin: denies: lesions, rash, jaundice, bruising Neurological: denies: headache, numbness, paresthesia, tingling, dizziness, weakness Hematologic/Lymphatic: denies: blood clots, easy bleeding, easy bruising Immunologic/allergic: denies: HIV/AIDS, transplant EXAM: GENERAL: Well-appearing, well-nourished and in no acute distress. HEAD: Atraumatic, normocephalic. EYES: Pupils equal round and reactive to light, extraocular movements intact, sclera anicteric, conjunctiva are normal. ENT: TMs normal, nares patent, tonsils enlarged and erythematous. Moist mucous membranes. NECK: Normal range of motion, supple without lymphadenopathy or JVD. LUNGS: Breath sounds clear to auscultation bilaterally and equal. No wheezes rales or rhonchi. HEART: Regular rate and rhythm without murmurs, rubs or gallops. ABDOMEN: Soft, nontender, normoactive bowel sounds. No guarding, no rebound. No masses appreciated. No splenic pain BACK: No CVA tenderness, no spinal tenderness, step-offs or deformities EXTREMITIES: Normal range of motion, no pitting or edema. No clubbing or cyanosis. NEUROLOGICAL: Cranial nerves II through XII grossly intact. Normal speech, normal gait. 5/5 strength, normal movement in all extremities, normal sensation PSYCH: Normal mood, normal affect. SKIN: Right thigh Rash now resolved, picture on phone looks like small scabs from scratching. Warm, dry, normal turgor, no visible rashes or lesions. Source: Patient Exam Limitations: No limitations - Personal History LMP (Females 10-55): 22-28 Days Ago Current Tetanus/Diphtheria Vaccine: Yes Current Tetanus Diphtheria and Acellular Pertussis (TDAP): Yes Tetanus Vaccine Date: < 10 years - Medical/Surgical History Hx Asthma: No Hx Chronic Respiratory Disease: No Hx Diabetes: No Hx Cardiac Disease: No Hx Renal Disease: No Hx Cirrhosis: No Hx Alcoholism: No Hx HIV/AIDS: No Hx Splenectomy or Spleen Trauma: No Other PMH: PSHx: wisdom teeth. PMHx: sepsis post wisdom tooth extraction/tooth abces - Social History Smoking Status: Never smoked Alcohol Use: Sober Drug Use: None Constitutional: Initial Vital Signs Temperature (C) 38.8 C H 01/06/18 18:16 Heart Rate 107 H 01/06/18 18:16 Respiratory Rate 20 01/06/18 18:16 Blood Pressure 117/86 H 01/06/18 18:16 O2 Sat (%) 95 01/06/18 18:16 O2 Delivery Mode Room Air Allergies/Adverse Reactions: No Known Allergies Allergy (Verified 01/06/18 18:15) Home Medications: Medication Instructions Recorded Control 1 tab PO DAILY 08/31/17 Oseltamivir Phosphate [Tamiflu 75 75 mg PO BID #10 cap 01/06/18 mg (*)] Medical Decision Making - Diagnostics Imaging Results: Imaging Impressions Chest X-Ray 01/06/18 19:39 Impression: Clear lungs. No pneumonia or effusion. ED Course/Re-evaluation: The patient has influenza B. Her fever has improved with antipyretics. We discussed Tamiflu. She has only had symptoms for about 24 hr. She would like a prescription. Will give her 1st dose now. She is happy with this and declines further workup or testing. I encouraged rest and hydration. Differential Diagnosis: Partial list of the Differential diagnosis considered include but were not limited to; influenza, strep throat, mononucleosis and although unlikely based on the history and physical exam, I also considered sepsis, meningitis, endocarditis. I discussed these differential diagnoses and the plan with the patient as well as the usual and expected course. The patient understands that the diagnosis is provisional and that in medicine we are not always correct and that further workup is often warranted. Usual and customary warnings were given. All of the patient's questions were answered. The patient was instructed to return to the emergency department should the symptoms at all worsen or return, otherwise to followup with the physician as we discussed. - Data Points Laboratory Results: Laboratory Results 01/06/18 19:39 01/06/18 19:34 01/06/18 01/06/18 01/06/18 Unknown 20:33 19:45 WBC RBC Hgb Hct MCV MCH MCHC RDW Plt Count MPV Neut % (Auto) Lymph % (Auto) [place] % (Auto) Eos % (Auto) Baso % (Auto) Nucleat RBC Rel Count Absolute Neuts (auto) Absolute Lymphs (auto) Absolute Monos (auto) Absolute Eos (auto) Absolute Basos (auto) Absolute Nucleated RBC Immature Gran % Immature Gran # Left Shift of Neuts PT INR APTT VBG Lactic Acid 1.0 mmol/L mmol/L (0.7-2.1) Sodium Potassium Chloride Carbon Dioxide Anion Gap BUN Creatinine Estimated GFR Glucose Calcium Total Bilirubin Urine Color PALE YELLOW Urine Appearance CLEAR Urine pH 8.0 H (5.0-7.5) Ur Specific [place] 1.008 (1.002-1.030) Urine Protein NEGATIVE (NEGATIVE) Urine Ketones NEGATIVE (NEGATIVE) Urine Blood NEGATIVE (NEGATIVE) Urine Nitrate NEGATIVE (NEGATIVE) Urine Bilirubin NEGATIVE (NEGATIVE) Urine Urobilinogen NEGATIVE EU EU (0.2-1.0) Ur Leukocyte Esterase TRACE H (NEGATIVE) Urine RBC NONE SEEN /hpf /hpf (0-3) Urine WBC 1-3 /hpf /hpf (0-3) Ur Epithelial Cells TRACE /lpf /lpf (NONE-1+) Urine Mucus TRACE /lpf /lpf (NONE-1+) Urine Glucose NEGATIVE (NEGATIVE) Nasal Influenza A PCR Nasal Influenza B PCR Monoscreen Group A Strep Screen Group A Strep DNA Pending 01/06/18 01/06/18 01/06/18 19:45 19:39 19:34 WBC 4.77 10^3/uL 10^3/uL (3.80-9.50) RBC Cancelled Hgb Cancelled Hct Cancelled MCV Cancelled MCH Cancelled MCHC Cancelled RDW Cancelled Plt Count Cancelled MPV Cancelled Neut % (Auto) 67.1 % % (39.3-74.2) Lymph % (Auto) 21.8 % % (15.0-45.0) [place] % (Auto) 9.9 % % (4.5-13.0) Eos % (Auto) 0.4 % L % (0.6-7.6) Baso % (Auto) 0.6 % % (0.3-1.7) Nucleat RBC Rel Count 0.0 % % (0.0-0.2) Absolute Neuts (auto) 3.20 10^3/uL 10^3/uL (1.70-6.50) Absolute Lymphs (auto) 1.04 10^3/uL 10^3/uL (1.00-3.00) Absolute Monos (auto) 0.47 10^3/uL 10^3/uL (0.30-0.80) Absolute Eos (auto) 0.02 10^3/uL L 10^3/uL (0.03-0.40) Absolute Basos (auto) 0.03 10^3/uL 10^3/uL (0.02-0.10) Absolute Nucleated RBC 0.00 10^3/uL 10^3/uL (0-0.01) Immature Gran % 0.2 % % (0.0-1.1) Immature Gran # 0.01 10^3/uL 10^3/uL (0.00-0.10) Left Shift of Neuts Cancelled PT 13.5 SEC SEC (12.0-15.0) INR 1.01 (0.83-1.16) APTT 29.7 SEC SEC (23.0-38.0) VBG Lactic Acid Sodium Potassium Chloride Carbon Dioxide Anion Gap BUN Creatinine Estimated GFR Glucose Calcium Total Bilirubin Urine Color Urine Appearance Urine pH Ur Specific [place] Urine Protein Urine Ketones Urine Blood Urine Nitrate Urine Bilirubin Urine Urobilinogen Ur Leukocyte Esterase Urine RBC Urine WBC Ur Epithelial Cells Urine Mucus Urine Glucose Nasal Influenza A PCR NEGATIVE FOR FLU A (NEGATIVE) Nasal Influenza B PCR FLU B DETECTED H (NEGATIVE) Monoscreen Group A Strep Screen Group A Strep DNA 01/06/18 01/06/18 01/06/18 19:34 19:34 19:30 WBC 4.89 10^3/uL 10^3/uL (3.80-9.50) RBC 4.84 10^6/uL 10^6/uL (4.18-5.33) Hgb 14.1 g/dL g/dL (12.6-16.3) Hct 41.7 % % (38.0-47.0) MCV 86.2 fL fL (81.5-99.8) MCH 29.1 pg pg (27.9-34.1) MCHC 33.8 g/dL g/dL (32.4-36.7) RDW 12.9 % % (11.5-15.2) Plt Count 219 10^3/uL 10^3/uL (150-400) MPV Neut % (Auto) Lymph % (Auto) [place] % (Auto) Eos % (Auto) Baso % (Auto) Nucleat RBC Rel Count Absolute Neuts (auto) Absolute Lymphs (auto) Absolute Monos (auto) Absolute Eos (auto) Absolute Basos (auto) Absolute Nucleated RBC Immature Gran % Immature Gran # Left Shift of Neuts PT INR APTT VBG Lactic Acid Sodium 140 mEq/L mEq/L (135-145) Potassium 4.4 mEq/L mEq/L (3.5-5.2) Chloride 105 mEq/L mEq/L (97-110) Carbon Dioxide 25 mEq/l mEq/l (22-31) Anion Gap 10 mEq/L mEq/L (8-16) BUN 7 mg/dL mg/dL (7-23) Creatinine 0.6 mg/dL mg/dL (0.6-1.0) Estimated GFR > 60 Glucose 87 mg/dL mg/dL (70-100) Calcium 9.2 mg/dL mg/dL (8.5-10.4) Total Bilirubin 0.5 mg/dL mg/dL (0.1-1.4) Urine Color Urine Appearance Urine pH Ur Specific [place] Urine Protein Urine Ketones Urine Blood Urine Nitrate Urine Bilirubin Urine Urobilinogen Ur Leukocyte Esterase Urine RBC Urine WBC Ur Epithelial Cells Urine Mucus Urine Glucose Nasal Influenza A PCR Nasal Influenza B PCR Monoscreen NEGATIVE (NEGATIVE) Group A Strep Screen Group A Strep DNA 01/06/18 19:16 WBC RBC Hgb Hct MCV MCH MCHC RDW Plt Count MPV Neut % (Auto) Lymph % (Auto) [place] % (Auto) Eos % (Auto) Baso % (Auto) Nucleat RBC Rel Count Absolute Neuts (auto) Absolute Lymphs (auto) Absolute Monos (auto) Absolute Eos (auto) Absolute Basos (auto) Absolute Nucleated RBC Immature Gran % Immature Gran # Left Shift of Neuts PT INR APTT VBG Lactic Acid Sodium Potassium Chloride Carbon Dioxide Anion Gap BUN Creatinine Estimated GFR Glucose Calcium Total Bilirubin Urine Color Urine Appearance Urine pH Ur Specific [place] Urine Protein Urine Ketones Urine Blood Urine Nitrate Urine Bilirubin Urine Urobilinogen Ur Leukocyte Esterase Urine RBC Urine WBC Ur Epithelial Cells Urine Mucus Urine Glucose Nasal Influenza A PCR Nasal Influenza B PCR Monoscreen Group A Strep Screen NEGATIVE (NEGATIVE) Group A Strep DNA Medications Given: Discontinued Medications Acetaminophen (Tylenol) 1,000 mg PO EDNOW ONE Stop: 01/06/18 19:44 Last Admin: 01/06/18 19:44 Dose: 1,000 mg Sodium Chloride (Ns) 1,500 mls @ 3,000 mls/hr 30 ml/kg infuse over 30 min ( 1500 ml) IV EDNOW ONE PRN Reason: Protocol Stop: 01/06/18 20:08 Last Admin: 01/06/18 19:44 Dose: 1,500 mls Ibuprofen (Motrin) 600 mg PO EDNOW ONE Stop: 01/06/18 19:44 Last Admin: 01/06/18 19:44 Dose: 600 mg Oseltamivir Phosphate (Tamiflu) 75 mg PO EDNOW ONE Stop: 01/06/18 21:08 Last Admin: 01/06/18 21:16 Dose: 75 mg Departure - Departure Disposition: Home, Routine, Self-Care Clinical Impression: Influenza B Condition: Fair Instructions: Oseltamivir (By mouth), Influenza (ED) Referrals: NONE *PRIMARY CARE P,. [Primary Care Provider] - As per Instructions Stand Alone Forms: Work Excuse Prescriptions: Oseltamivir Phosphate [Tamiflu 75 mg (*)] 75 mg PO BID #10 cap
[2018-01-06] MEDS: ACETAMINOPHEN 500 MG TAB PO ONE ×2 (19:44)
[2018-01-06 19:56] LABS: INR 1.01 (0.83-1.16); PROTIME(PATIENT) 13.5 SEC (12.0-15.0)
[2018-01-06 20:30] VITALS: RESP 16
[2018-01-06] MEDS ORDERED: OSELTAMIVIR PHOSPHATE 75 MG CAP PO ONE (21:07)
[2018-01-06 21:41] VITALS: BP 113/67; PULSE 74; TEMP 100.6; O2SAT 96
== END 2018-01-06 21:41 | disposition home or self-care (01) ==
DX: J10.1 Influenza due to other identified influenza virus with other respiratory manifestations (principal); E86.9 Volume depletion, unspecified

== ENCOUNTER 2018-03-13 22:47 | Emergency (ER) | payer MEDICAID, OTHER ==
[2018-03-13] MEDS ORDERED: NS 1,000 ML IV ONE (23:06)
--- NOTE | 2018-03-13 23:15 | EDPHY ---
H & P Stated Complaint: took the pill for a medical on 03/09,bleeding with foul odor Source: Patient Exam Limitations: No limitations - Personal History Current Tetanus/Diphtheria Vaccine: Yes Current Tetanus Diphtheria and Acellular Pertussis (TDAP): Yes Tetanus Vaccine Date: < 10 years - Medical/Surgical History Hx Asthma: No Hx Chronic Respiratory Disease: No Hx Diabetes: No Hx Cardiac Disease: No Hx Renal Disease: No Hx Cirrhosis: No Hx Alcoholism: No Hx HIV/AIDS: No Hx Splenectomy or Spleen Trauma: No Other PMH: PSHx: wisdom teeth. PMHx: sepsis post wisdom tooth extraction/tooth abces - Social History Smoking Status: Never smoked Time Seen by Provider: 03/13/18 23:11 HPI/ROS: HPI: This is a 22-year-old female who presents with Chief Complaint: took the pill for a medical on 03/09,bleeding with foul odor Location: pelvic Quality: Bleeding Duration: 24 hr Signs and Symptoms: no fever, + nausea, no vomiting, no hematemesis, no blood in stool, no abdominal bloating, no diarrhea, no back pain, no urinary symptoms , no indigestion, no chest pain, no shortness of breath Timing: Acute, improved Severity: Moderate Context: Patient reports that she was 6 weeks estimated gestation and [facility] started with a"M" and then another pill on Monday that started with a "M." She reports that she immediately started to bleed on Monday. Yesterday afternoon she started passed large clots of tissue that had a foul order. Passage of clots and tissue continue until this afternoon. She reports that the bleeding has completely resolved. She has not passed any tissue in approximately 6 hr. Patient reports that [facility] who advised her that she could come in tomorrow morning for follow-up. She has no history of anemia/iron deficiency. She denies any fever, abdominal pain, diarrhea, dysuria. Patient reports that she has not had sexual intercourse since taking the medical pill. She reports that initially she had severe abdominal cramping but that has completely resolved. Modifying Factors: None Comment: ROS: see HPI Constitutional: No fever, no chills, no weight loss Eyes: No blurred vision Respiratory: No shortness of breath, no cough Cardiovascular: No chest pain, no palpitations Gastrointestinal: + nausea, no vomiting, no diarrhea, no hematemesis, no blood in stool Genitourinary: No dysuria, no blood in urine Extremities: No myalgias, no edema Neurologic: No weakness, no numbness Skin: No rashes, no petechiae Hematologic: No bruising, no bleeding PSHx: wisdom teeth PMHx: sepsis post wisdom tooth extraction/tooth abces Social history: Student. Family history noncontributory. CONSTITUTIONAL: Extremely polite and cooperative nontoxic-appearing young adult white female, awake and alert, no obvious distress HEENT: Atraumatic and normocephalic, PERRL, EOMI. Nares patent; no rhinorrhea; no nasal mucosal edema. Tympanic membranes clear. Oropharynx clear, no exudate and moist pink mucosa. Airway patent. No lymphadenopathy. No meningismus. Cardiovascular: Normal S1/S2, regular rate, regular rhythm, without murmur rub or gallop. PULMONARY/CHEST: Symmetrical and nontender. Clear to auscultation bilaterally. Good air movement. No accessory muscle usage. ABDOMEN: Soft, nondistended, nontender, no rebound, no guarding, no peritoneal signs, no masses or organomegaly. No CVAT. PELVIC: normal external genitalia, normal cervix, cervical os was closed, no cervical motion tenderness, no adnexal mass, no discharge, scant amount bleeding. The exam was performed with a powderman. EXTREMITIES: 2/2 pulses, strength 5/5, no deformities, no clubbing, no cyanosis or edema. NEUROLOGICAL: no focal neuro deficits. GCS 15. SKIN: Warm and dry, no erythema. no rash. Good capillary refill. (Long,Terra) Constitutional: Initial Vital Signs Temperature (C) 36.8 C 03/13/18 22:48 Heart Rate 68 03/13/18 22:48 Respiratory Rate 16 03/13/18 22:48 Blood Pressure 121/72 H 03/13/18 22:48 O2 Sat (%) 98 03/13/18 22:48 O2 Delivery Mode Room Air Allergies/Adverse Reactions: No Known Allergies Allergy (Verified 03/13/18 22:52) Home Medications: Medication Instructions Recorded NK [No Known Home Meds] 03/13/18 Medical Decision Making ED Course/Re-evaluation: Labs, urinalysis, pelvic ultrasound ordered due to determine if there is retained products of conception Vital signs reviewed upon arrival and show stability without any systemic signs. Given 1 L normal saline. 2346: Labs reviewed. No signs of leukocytosis/anemia/MICHELLE/electrolyte imbalance. 0007: End of shift. Signed over to Dr. Fisher pending urinalysis and ultrasound results. Suspect patient will be discharged [facility]. This patient was seen under the supervision of my secondary supervising physician. I evaluated care for this patient independently. Discussed this patient with Dr. Fisher who did not see the patient. (Eboni Alves) 0155: Spoke with Dr. Rodriges and discussed the case. This patient is hemodynamically stable no acute distress. Does not have significant bleeding. H&H are stable. No high white count. Pelvic exam per ANGELICA Alves, negative for signs of infection or retained products. Discussed case with Dr. Rodriges. Comfort patient being discharged [facility]. Additionally return precautions discussed with the patient she understands return emergency room she develops worsening abdominal pain heavy vaginal bleeding, fever, signs of infection or any questions or concerns she is comfortable this plan. Updated patient on ultrasound results and blood work. (Sergio Fisher) Differential Diagnosis: Differential diagnosis includes but is not limited to ectopic , sepsis , retained products of conception, anemia. (Eboni Alves) - Data Points Laboratory Results: Laboratory Results 03/13/18 23:21 03/13/18 23:21 03/14/18 03/13/18 03/13/18 00:40 23:21 23:21 WBC RBC Hgb Hct MCV MCH MCHC RDW Plt Count MPV Neut % (Auto) Lymph % (Auto) [place] % (Auto) Eos % (Auto) Baso % (Auto) Nucleat RBC Rel Count Absolute Neuts (auto) Absolute Lymphs (auto) Absolute Monos (auto) Absolute Eos (auto) Absolute Basos (auto) Absolute Nucleated RBC Immature Gran % Immature Gran # Sodium 140 mEq/L mEq/L (135-145) Potassium 4.0 mEq/L mEq/L (3.3-5.0) Chloride 102 mEq/L mEq/L (97-110) Carbon Dioxide 24 mEq/l mEq/l (22-31) Anion Gap 14 mEq/L mEq/L (8-16) BUN 8 mg/dL mg/dL (7-23) Creatinine 0.5 mg/dL L mg/dL (0.6-1.0) Estimated GFR > 60 Glucose 93 mg/dL mg/dL (70-100) Calcium 8.8 mg/dL mg/dL (8.5-10.4) Urine Color YELLOW Urine Appearance MODERATELY TURBID Urine pH 7.0 (5.0-7.5) Ur Specific [place] 1.019 (1.002-1.030) Urine Protein NEGATIVE (NEGATIVE) Urine Ketones NEGATIVE (NEGATIVE) Urine Blood 2+ H (NEGATIVE) Urine Nitrate NEGATIVE (NEGATIVE) Urine Bilirubin NEGATIVE (NEGATIVE) Urine Urobilinogen 2.0 EU H EU (0.2-1.0) Ur Leukocyte Esterase NEGATIVE (NEGATIVE) Urine RBC 15-25 /hpf H /hpf (0-3) Urine WBC Not Reported Ur Epithelial Cells TRACE /lpf /lpf (NONE-1+) Amorphous Sediment PRESENT /hpf /hpf (NONE-1+) Urine Mucus 3+ /lpf H /lpf (NONE-1+) Urine Glucose NEGATIVE (NEGATIVE) Patient ABO/Rh O POSITIVE 03/13/18 23:21 WBC 7.17 10^3/uL 10^3/uL (3.80-9.50) RBC 4.54 10^6/uL 10^6/uL (4.18-5.33) Hgb 13.5 g/dL g/dL (12.6-16.3) Hct 40.1 % % (38.0-47.0) MCV 88.3 fL fL (81.5-99.8) MCH 29.7 pg pg (27.9-34.1) MCHC 33.7 g/dL g/dL (32.4-36.7) RDW 13.7 % % (11.5-15.2) Plt Count 301 10^3/uL 10^3/uL (150-400) MPV 9.4 fL fL (8.7-11.7) Neut % (Auto) 48.8 % % (39.3-74.2) Lymph % (Auto) 39.6 % % (15.0-45.0) [place] % (Auto) 4.5 % % (4.5-13.0) Eos % (Auto) 6.4 % % (0.6-7.6) Baso % (Auto) 0.6 % % (0.3-1.7) Nucleat RBC Rel Count 0.0 % % (0.0-0.2) Absolute Neuts (auto) 3.50 10^3/uL 10^3/uL (1.70-6.50) Absolute Lymphs (auto) 2.84 10^3/uL 10^3/uL (1.00-3.00) Absolute Monos (auto) 0.32 10^3/uL 10^3/uL (0.30-0.80) Absolute Eos (auto) 0.46 10^3/uL H 10^3/uL (0.03-0.40) Absolute Basos (auto) 0.04 10^3/uL 10^3/uL (0.02-0.10) Absolute Nucleated RBC 0.00 10^3/uL 10^3/uL (0-0.01) Immature Gran % 0.1 % % (0.0-1.1) Immature Gran # 0.01 10^3/uL 10^3/uL (0.00-0.10) Sodium Potassium Chloride Carbon Dioxide Anion Gap BUN Creatinine Estimated GFR Glucose Calcium Urine Color Urine Appearance Urine pH Ur Specific [place] Urine Protein Urine Ketones Urine Blood Urine Nitrate Urine Bilirubin Urine Urobilinogen Ur Leukocyte Esterase Urine RBC Urine WBC Ur Epithelial Cells Amorphous Sediment Urine Mucus Urine Glucose Patient ABO/Rh Medications Given: Discontinued Medications Sodium Chloride (Ns) 1,000 mls @ 0 mls/hr IV ONCE ONE; Wide Open PRN Reason: Protocol Stop: 03/13/18 23:07 Last Admin: 03/13/18 23:20 Dose: 1,000 mls Departure - Departure Disposition: Home, Routine, Self-Care Clinical Impression: Medical Condition: Good Instructions: Miscarriage (ED) Additional Instructions: Consume a minimum of 8-10 glasses of water or electrolyte fluid replacement drinks that include Gatorade, Powerade, Pedialyte. Take Tylenol 650 mg every 4 hours and/or Ibuprofen 600 mg every 8 hours with food as needed for pain. [facility]. Referrals: [facility] [Clinic] - 1 day without fail
[2018-03-13 23:35] LABS: PLATELET COUNT 301 10^3/uL (150-400)
[2018-03-14 00:43] VITALS: BP 101/62
== END 2018-03-14 02:00 | disposition home or self-care (01) ==
DX: O04.6 Delayed or excessive hemorrhage following (induced) termination of pregnancy (principal); E86.9 Volume depletion, unspecified